=== PATIENT | female | born 1930 | race Caucasian/White ===

== ENCOUNTER 2017-03-19 18:04 | Inpatient (IN) | payer MEDICARE ==
[~2017-03-19] VITALS: Ht 152.4 cm; Wt 152.4 kg
[~2017-03-19 18:04] MED LIST: ASPI325T PO; BUME1TAB PO; CILO100T PO; DILTCD180 PO; DUONI NEB; LEVO.1 PO; NEBUKIT4; NEBUMIS6 INH; PARI1 PO; ROSU40 PO; SPIRCAP INH; TIOT18I INH; ULOR40TA PO; Z.0.OXYGENDME FM
[2017-03-19] MEDS ORDERED: SODIUM CHLORIDE 0.9% FLUSH 10 ML FLUSH IVF PRN (18:30)
[2017-03-19 18:45] VITALS: BP 147/67; PULSE 69; RESP 18; TEMP 97.9; O2SAT 96
[2017-03-19] MEDS ORDERED: TYLE325T PO (19:03)
[2017-03-19] MEDS ORDERED: DILT-48 PO (19:07)
[2017-03-19] MEDS ORDERED: LEVO112T2 PO (19:07)
[2017-03-19] MEDS ORDERED: ULOR80TA2 (19:07)
[2017-03-19] MEDS ORDERED: ASPI325T33 PO (19:07)
[2017-03-19] MEDS ORDERED: MAGN500T2 PO (19:07)
[2017-03-19] MEDS ORDERED: HYDR-3799 PO (19:07)
[2017-03-19] MEDS ORDERED: PARI1 PO (19:07)
[2017-03-19] MEDS ORDERED: FERR325T18 PO (19:07)
--- NOTE | 2017-03-19 19:18 | PD ---
HPI Chief Complaint: Abnormal Results Time Seen by Provider: 18:20 Travel History International Travel<30 days: No Contact w/Intl Traveler<30days: No Traveled to known affect area: No History of Present Illness HPI 86-year-old female with history of CHF, A. fib, and kidney disease presents to the emergency room for evaluation of low hemoglobin. Patient had routine outpatient labs done today that showed a hemoglobin of 6.8. She denies any hematemesis, melena, vaginal bleeding, hematuria, or hematochezia. Patient has had lower abdominal pain for the past few days. She also reports dysuria. She is currently in [facility] after having been admitted to [facility] for 2 weeks. Son states she was admitted for dehydration after having the flu and an exacerbation of acute on chronic kidney disease. She follows with the traffic manager, Dr. Choudhary. Son states her renal function is around 18% at baseline. There are discussions of possibly starting dialysis. He states she has had no history of anemia. She takes 325 mg aspirin daily. PCP is Dr. Linares. Patient has a DNR. [facility] Past Medical History Arthritis: Yes Atrial Fibrillation: Yes Blood Disorders: No Heart Rhythm Problems: Yes Cancer: No Cardiovascular Problems: Yes ( ) High Cholesterol: Yes Chemotherapy: No Chest Pain: Yes Congestive Heart Failure: No COPD: Yes Diabetes: No Diminished Hearing: No Endocrine: Yes Genitourinary: Yes (left kidney function 30% per pt) Hypertension: Yes Immune Disorder: No Implanted Vascular Access Dvce: Yes Musculoskeletal: Yes (right knee replacement ) Neurologic: Yes (surgical clip aneurysm) Psychiatric: No Reproductive: No Respiratory: No Thyroid Disease: Yes (partial thyroidectomy ) Past Surgical History Body Medical Devices: brain aneurysm clip Eye Surgery: Yes (BILATERAL CATARACT SX) Gynecologic Surgery: Yes (HYSTERECTOMY 1971) Hysterectomy: Yes Other Surgery: Yes (THYROID-PARTIAL 1996) Social History Alcohol Use: No Tobacco Use: No Substance Use: No Allergies-Medications (Allergen,Severity, Reaction): Coded Allergies: No Known Allergies (Unverified , 11/22/14) Reported Meds & Prescriptions Reported Meds & Active Scripts Active Reported Levothyroxine (Levothyroxine Sodium) 112 Mcg Tab 112 Mcg PO DAILY Diltiazem ER 24 HR 240 Mg Caper 240 Mg PO DAILY Aspirin EC (Aspirin) 325 Mg Tabdr 325 Mg PO DAILY Hydralazine HCl 25 Mg Tablet 50 Mg PO HS Zemplar (Paricalcitol) 1 Mcg Cap 1 Mcg PO DAILY Uloric (Febuxostat) 80 Mg Tab Ferrous Sulfate 325 Mg (65 Mg Iron) Tablet 325 Mg PO TIDPC Magnesium Oxide 500 Mg Tab 500 Mg PO DAILY Tylenol (Acetaminophen) 325 Mg Tab 650 Mg PO Q6H PRN Review of Systems Except as stated in HPI: all other systems reviewed are Neg Physical Exam Narrative GENERAL: Well-nourished, morbidly obese female in no acute distress. Afebrile. Ambulatory. SKIN: Focused skin assessment warm/dry. Healing stage I decubitus ulcer. HEAD: Normocephalic. EYES: No scleral icterus. No injection or drainage. NECK: Supple, trachea midline. No JVD or lymphadenopathy. CARDIOVASCULAR: Regular rate and rhythm without murmurs, gallops, or rubs. RESPIRATORY: Breath sounds equal bilaterally. No accessory muscle use. GASTROINTESTINAL: Abdomen soft, nondistended. Diffuse tenderness to palpation of the lower abdomen. No rebound tenderness or guarding. RECTAL EXAM: Examined in presence of the nurse. No tenderness, stool is brown. There is bright red blood. Data Data Last Documented VS Vital Signs Date Time Temp Pulse Resp B/P (MAP) Pulse Ox O2 Delivery O2 Flow Rate FiO2 03/19/17 18:45 97.9 69 18 147/67 (93) 96 Orders Orders Complete Blood Count With Diff (03/19/17 18:23) Comprehensive Metabolic Panel (03/19/17 18:23) Lipase (03/19/17 18:23) Prothrombin Time / Inr (Pt) (03/19/17 18:23) Act Partial Throm Time (Ptt) (03/19/17 18:23) Type And Screen (03/19/17 18:23) Ecg Monitoring (03/19/17 18:23) Iv Access Insert/Monitor (03/19/17 18:23) Oximetry (03/19/17 18:23) Sodium Chloride 0.9% Flush (Ns Flush) (03/19/17 18:30) Urinalysis - C+S If Indicated (03/19/17 18:55) Ct Abd/Pel W/O Iv Contrast (03/19/17 19:42) Sodium Chlor 0.9% 250 Ml Inj (Ns 250 Ml (03/19/17 21:15) Admit To Inpatient (03/19/17 ) Vital Signs (Adult) Q4H (03/19/17 21:59) Activity Oob With Assistance (03/19/17 21:59) Diet Npo (03/20/17 Breakfast) Sodium Chloride 0.9% Flush (Ns Flush) (03/19/17 22:00) Sodium Chloride 0.9% Flush (Ns Flush) (03/20/17 09:00) Basic Metabolic Panel (Bmp) (03/20/17 06:00) Complete Blood Count With Diff (03/20/17 06:00) Pt Request For Service (03/19/17 21:59) Case Management Consult (03/19/17 21:59) Naloxone Inj (Narcan Inj) (03/19/17 22:00) Inpatient Certification (03/19/17 ) Typesetting Supervisor / Telemetry [id number] (03/19/17 21:59) Red Blood Cells (Rbc) (03/19/17 22:01) Blood Product Administration (03/19/17 22:01) Admit Order (Ed Use Only) (03/19/17 22:00) Consult Gastroenterology (03/19/17 ) Labs Laboratory Tests Test 03/19/17 18:30 03/19/17 19:47 White Blood Count 15.3 TH/MM3 Red Blood Count 2.38 MIL/MM3 Hemoglobin 7.3 GM/DL Hematocrit 22.7 % Mean Corpuscular Volume 95.5 FL Mean Corpuscular Hemoglobin 30.6 PG Mean Corpuscular Hemoglobin Concent 32.1 % Red Cell Distribution Width 16.2 % Platelet Count 316 TH/MM3 Mean Platelet Volume 9.4 FL Neutrophils (%) (Auto) 87.2 % Lymphocytes (%) (Auto) 4.5 % Monocytes (%) (Auto) 6.1 % Eosinophils (%) (Auto) 1.7 % Basophils (%) (Auto) 0.5 % Neutrophils # (Auto) 13.3 TH/MM3 Lymphocytes # (Auto) 0.7 TH/MM3 Monocytes # (Auto) 0.9 TH/MM3 Eosinophils # (Auto) 0.3 TH/MM3 Basophils # (Auto) 0.1 TH/MM3 CBC Comment AUTO DIFF Differential Total Cells Counted 100 Neutrophils % (Manual) 83 % Lymphocytes % 5 % Monocytes % 9 % Eosinophils % 1 % Basophils % 1 % Neutrophils # (Manual) 12.9 TH/MM3 Metamyelocytes 1 % Differential Comment FINAL DIFF MANUAL Platelet Estimate NORMAL Platelet Morphology Comment NORMAL Ovalocytes 1+ Blood Urea Nitrogen 74 MG/DL Creatinine 4.29 MG/DL Random Glucose 106 MG/DL Total Protein 6.4 GM/DL Albumin 2.1 GM/DL Calcium Level 8.9 MG/DL Alkaline Phosphatase 101 U/L Aspartate Amino Transf (AST/SGOT) 14 U/L Alanine Aminotransferase (ALT/SGPT) 23 U/L Total Bilirubin 0.3 MG/DL Sodium Level 143 MEQ/L Potassium Level 4.3 MEQ/L Chloride Level 113 MEQ/L Carbon Dioxide Level 18.2 MEQ/L Anion Gap 12 MEQ/L Estimat Glomerular Filtration Rate 10 ML/MIN Lipase 195 U/L Prothrombin Time 10.1 SEC Prothromb Time International Ratio 1.0 RATIO Activated Partial Thromboplast Time 26.1 SEC MDM Medical Decision Making Medical Screen Exam Complete: Yes Emergency Medical Condition: Yes Medical Record Reviewed: Yes Differential Diagnosis Hematuria, diverticulosis, internal bleeding, anemia Narrative Course 86-year-old female with history of chronic kidney disease, CHF, and A. fib on 325 mg aspirin daily presents to the emergency room for evaluation of a hemoglobin of 6.8. Patient came from [facility]. She is well- appearing with stable vital signs in the ER. She has diffuse tenderness to the lower abdomen. Digital exam of the rectum reveals bright red blood. Hemoccult- positive. Patient was typed and screened upon arrival. Repeat H&H in the ED is 7.3 and 22.7. She has mild leukocytosis of 15.3. CMP is only remarkable for chronic kidney disease with creatinine of 4.29. CT of the abdomen reveals colonic diverticulosis. UA ordered and pending. Patient will be admitted for critically low hemoglobin with active GI bleeding. I spoke to Dr. Abrams who agrees to accept this patient to her service. Patient understands and agrees to plan. [facility]pt Point of Care Internal Pos. & Neg. Controls: Passed Fecal Specimen Occult Blood: Positive Diagnosis Primary Impression: Anemia Qualified Codes: D50.0 - Iron deficiency anemia secondary to blood loss ( chronic) Additional Impression: GI bleed Qualified Codes: K92.2 - Gastrointestinal hemorrhage, unspecified Admitting Information Admitting Physician Requests: Admit Condition: Stable Yanet Frazier Mar 19, 2017 19:18
[2017-03-19 19:22] LABS: AUTOMATED NEUTROPHIL # 13.3 TH/MM3 (1.8-7.7); BASOPHIL # 0.1 TH/MM3 (0-0.2); BASOPHIL % 0.5 % (0.0-2.0); EOSINOPHIL # 0.3 TH/MM3 (0-0.4); EOSINOPHIL % 1.7 % (0.0-4.0); HEMATOCRIT 22.7 % (35.0-46.0); HEMOGLOBIN 7.3 GM/DL (11.6-15.3); LYMPH % 4.5 % (9.0-44.0); LYMPHOCYTE # 0.7 TH/MM3 (1.0-4.8); MEAN CELL VOLUME 95.5 FL (80.0-100.0); MEAN CORPUSCULAR HEMOGLOBIN 30.6 PG (27.0-34.0); MEAN CORPUSCULAR HGB CONC 32.1 % (32.0-36.0); MEAN PLATELET VOLUME 9.4 FL (7.0-11.0); MONO % 6.1 % (0.0-8.0); MONOCYTE # 0.9 TH/MM3 (0-0.9); NEUT % 87.2 % (16.0-70.0); PLATELET COUNT 316 TH/MM3 (150-450); RED BLOOD COUNT 2.38 MIL/MM3 (4.00-5.30); RED CELL DISTRIBUTION WIDTH 16.2 % (11.6-17.2); WHITE BLOOD COUNT 15.3 TH/MM3 (4.0-11.0)
[2017-03-19 19:25] LABS: ALBUMIN 2.1 GM/DL (3.4-5.0); AST (GOT) 14 U/L (15-37); BICARBONATE 18.2 MEQ/L (21.0-32.0); BLOOD UREA NITROGEN 74 MG/DL (7-18); CALCIUM 8.9 MG/DL (8.5-10.1); CHLORIDE 113 MEQ/L (98-107); CREATININE 4.29 MG/DL (0.50-1.00); GLOMERULAR FILTRATION RATE 10 ML/MIN (>89); GLUCOSE,RANDOM 106 MG/DL (74-106); LIPASE 195 U/L (73-393); SODIUM (NA) 143 MEQ/L (136-145)
[2017-03-19 19:28] LABS: ALKALINE PHOSPHATASE 101 U/L (45-117); ALT (GPT) 23 U/L (10-53); TOTAL BILIRUBIN ADULT 0.3 MG/DL (0.2-1.0); TOTAL PROTEIN 6.4 GM/DL (6.4-8.2)
[2017-03-19 19:44] LABS: BASOPHILS 1 % (0-2); LYMPHOCYTES 5 % (9-44); METAMYELOCYTES 1 % (0-1); MONOCYTES 9 % (0-8); NEUTROPHIL # MANUAL DIFF 12.9 TH/MM3 (1.8-7.7); POLYS (SEG NEUTROPHILS) 83 % (16-70)
[2017-03-19 19:45] LABS: OVALOCYTES 1+ (NORMAL)
[2017-03-19 20:36] LABS: PROTHROMBIN TIME - PATIENT 10.1 SEC (9.8-11.6)
--- NOTE | 2017-03-19 20:50 | RADRPT ---
EXAM DATE/TIME: 03/19/2017 20:12 [place] COMPARISON: No previous studies available for comparison. INDICATIONS : Lower abdomen pain ORAL CONTRAST: No oral contrast ingested. RADIATION DOSE: 15.06 CTDIvol (mGy) MEDICAL HISTORY : Cardiovascular disease. Hypertension. Chronic obstructive pulmonary disease.Renal disease SURGICAL HISTORY : Hysterectomy. ENCOUNTER: Initial ACUITY: 2 days PAIN SCALE: 6/10 LOCATION: Abdomen TECHNIQUE: Volumetric scanning of the abdomen and pelvis was performed. Using automated exposure control and ad justment of the mA and/or kV according to patient size, radiation dose was kept as low as reasonably achievable to obtain optimal diagnostic quality images. DICOM format image data is available electro nically for review and comparison. FINDINGS: LOWER LUNGS: Moderate cardiomegaly with tiny pericardial effusion. Tiny bilateral pleural effusions and associated passive atelectasis. LIVER: Homogeneous density without lesion. There is no dilation of the biliary tree. No calcified gallston es. SPLEEN: Normal size without lesion. PANCREAS: Within normal limits. KIDNEYS: Both kidneys are atrophic. Both contain low density cortical lesions consistent with cysts. No perine phric fluid collections or stones. No hydronephrosis. ADRENAL GLANDS: Within normal limits. VASCULAR: Diffuse calcified plaque without aneurysmal change. BOWEL/MESENTERY: The stomach, small bowel, and colon demonstrate no acute abnormality. There is no free intraperitone al air or fluid. Scattered colonic diverticuli without acute inflammation. ABDOMINAL WALL: There is mild stranding of the simultaneous fat involving the left flank. No fluid collections. RETROPERITONEUM: There is no lymphadenopathy. BLADDER: No wall thickening or mass. REPRODUCTIVE: Within normal limits. INGUINAL: There is no lymphadenopathy or hernia. MUSCULOSKELETAL: Within normal limits for patient age. CONCLUSION: 1. No acute abnormality. 2. Mild stranding of the subcutaneous fat involving the left flank. This could relate to focal edema or cellulitis. No fluid collection. 3. Colonic diverticulosis. 4. Cardiomegaly with tiny bilateral pleural effusions and bibasilar atelectasis. Tae Vyas Jr., MD on March 19, 2017 at 20:45 Board Certified Radiologist. This report was verified electronically.
[2017-03-19] MEDS ORDERED: SODIUM CHLOR 0.9% 250 ML INJ 250 ML IV ONE (21:15)
[2017-03-19] MEDS ORDERED: NALOXONE HCL 0.4 MG/ML AMP IV PUSH PRN (22:00)
[2017-03-19] MEDS ORDERED: SODIUM CHLORIDE 0.9% FLUSH 10 ML FLUSH IV FLUSH PRN (22:00)
[2017-03-19 23:01] VITALS: BP 116/65; PULSE 89; RESP 14; O2SAT 97
[2017-03-19 23:37] VITALS: BP 114/51; PULSE 74; RESP 14; TEMP 97.8; O2SAT 95
[2017-03-19 23:52] VITALS: BP 134/62; PULSE 72; RESP 14; TEMP 97.8; O2SAT 96
[2017-03-20] VITALS (14 sets, daily range): BP systolic 95–130; BP diastolic 56–84; PULSE 75–104; RESP 14–20; TEMP 96.3–98.1; O2SAT 93–97
[2017-03-20 02:04] LABS: AMORPHOUS SEDIMENT, URINE RARE; BACTERIA, URINE OCC /hpf; BILIRUBIN, URINE NEG (NEG); BLOOD, URINE NEG (NEG); GLUCOSE,URINE NEG (NEG); KETONE, URINE NEG (NEG); NITRITE,URINE NEG (NEG); PH, URINE 5.5 (5.0-8.5); SQUAMOUS EPITHELIAL CELL URINE 8 /hpf (0-5); URINE COLOR LIGHT-YELLOW (YELLW/STRAW); URINE LEUKOCYTE ESTERASE MOD (NEG)
--- NOTE | 2017-03-20 04:00 | HHI.HP ---
HPI [facility] Primary Care Physician Unknown Admission Diagnosis anemia, GI bleed Diagnoses: Travel History International Travel<30 Days: No Contact w/Intl Traveler <30 Da: No Traveled to Known Affected Are: No History of Present Illness History from patient, ER physician communication, and review of medical records. Patient is quite sleepy during my examination. Both nursing staff and the notes from [facility] also stated that patient at times is oriented only to herself and not a great historian. On specific questioning though, patient reports of abdominal pain. She denies nausea/vomiting/diarrhea. She denies seeing any blood in her stool. She does note that she was admitted recently to hospital. Per [facility] transfer notes, patient was sent to ER for abnormal blood work showing low hemoglobin of 6.8. In the emergency room, guaiac was done by ER PA which showed bright red blood. Review of Systems ROS Limitations: Altered Mental Status (limited historian. Unable to obtain review of systems apart from the fact that she has pain in her abdomen.) Past Family Social History Past Medical History per emr Atrial fibrillation Arthritis CKD Hypertension Brain aneurysm Hypothyroidism COPD Past Surgical History per emr Brain aneurysm, status post clipping and craniotomy Bilateral cataract surgery Hysterectomy in 1971 Partial thyroidectomy 1996 Right total knee arthroplasty approximately 6 years ago Allergies: Coded Allergies: No Known Allergies (Unverified , 11/22/14) Family History Unknown. Physical Exam Vital Signs Vital Signs Date Time Temp Pulse Resp B/P (MAP) Pulse Ox O2 Delivery O2 Flow Rate FiO2 03/20/17 01:00 97.4 75 16 120/56 96 03/20/17 00:30 97.9 90 14 130/64 96 03/20/17 00:15 97.9 82 14 123/59 96 03/19/17 23:52 97.8 72 14 134/62 96 03/19/17 23:37 97.8 74 14 114/51 95 03/19/17 23:01 89 14 116/65 (82) 97 03/19/17 18:45 97.9 69 18 147/67 (93) 96 Physical Exam GENERAL: This is a well-nourished, well-developed patient, in no apparent distress. Obese lady. Snoring loudly. SKIN: Multiple superficial ecchymoses HEAD: Atraumatic. Normocephalic. No temporal or scalp tenderness. EYES: No scleral icterus. No injection or drainage. ENT: Nose without bleeding, purulent drainage or septal hematoma. Airway patent. NECK: Trachea midline. No JVD Supple, nontender, no meningeal signs. CARDIOVASCULAR: Regular rate and rhythm without murmurs, gallops, or rubs. RESPIRATORY: Clear to auscultation. Breath sounds equal bilaterally. No wheezes , rales, or rhonchi. GASTROINTESTINAL: Abdomen soft, non-tender, nondistended. No guarding. MUSCULOSKELETAL: Extremities without clubbing, cyanosis, or edema. bilateral LE mild edema, obese, thick legs NEUROLOGICAL: . Motor and sensory grossly within normal limits. Normal speech.sleeping mostly Laboratory Laboratory Tests Test 03/19/17 18:30 03/19/17 19:47 03/20/17 01:40 White Blood Count 15.3 Red Blood Count 2.38 Hemoglobin 7.3 Hematocrit 22.7 Mean Corpuscular Volume 95.5 Mean Corpuscular Hemoglobin 30.6 Mean Corpuscular Hemoglobin Concent 32.1 Red Cell Distribution Width 16.2 Platelet Count 316 Mean Platelet Volume 9.4 Neutrophils (%) (Auto) 87.2 Lymphocytes (%) (Auto) 4.5 Monocytes (%) (Auto) 6.1 Eosinophils (%) (Auto) 1.7 Basophils (%) (Auto) 0.5 Neutrophils # (Auto) 13.3 Lymphocytes # (Auto) 0.7 Monocytes # (Auto) 0.9 Eosinophils # (Auto) 0.3 Basophils # (Auto) 0.1 CBC Comment AUTO DIFF Differential Total Cells Counted 100 Neutrophils % (Manual) 83 Lymphocytes % 5 Monocytes % 9 Eosinophils % 1 Basophils % 1 Neutrophils # (Manual) 12.9 Metamyelocytes 1 Differential Comment FINAL DIFF MANUAL Platelet Estimate NORMAL Platelet Morphology Comment NORMAL Ovalocytes 1+ Blood Urea Nitrogen 74 Creatinine 4.29 Random Glucose 106 Total Protein 6.4 Albumin 2.1 Calcium Level 8.9 Alkaline Phosphatase 101 Aspartate Amino Transf (AST/SGOT) 14 Alanine Aminotransferase (ALT/SGPT) 23 Total Bilirubin 0.3 Sodium Level 143 Potassium Level 4.3 Chloride Level 113 Carbon Dioxide Level 18.2 Anion Gap 12 Estimat Glomerular Filtration Rate 10 Lipase 195 Prothrombin Time 10.1 Prothromb Time International Ratio 1.0 Activated Partial Thromboplast Time 26.1 Urine Color LIGHT-YELLOW Urine Turbidity HAZY Urine pH 5.5 Urine Specific [place] 1.010 Urine Protein 30 Urine Glucose (UA) NEG Urine Ketones NEG Urine Occult Blood NEG Urine Nitrite NEG Urine Bilirubin NEG Urine Urobilinogen LESS THAN 2.0 Urine Leukocyte Esterase MOD Urine RBC 2 Urine WBC 13 Urine Squamous Epithelial Cells 8 Urine Amorphous Sediment RARE Urine Bacteria OCC Microscopic Urinalysis Comment CULTURE INDICATED Date/Time Source Procedure Growth Status 03/20/17 01:40 Urine Clean Catch Urine Culture Pending Received Result Diagram: 03/19/17 1830 03/19/17 183 Imaging Last 48 hours Impressions Abdomen/Pelvis CT 03/19/171941 Signed Impressions: Service Date/Time: March 20:12 - CONCLUSION: 1. No acute abnormality. 2. Mild stranding of the subcutaneous fat involving the left flank. This could relate to focal edema or cellulitis. No fluid collection. 3. Colonic diverticulosis. 4. Cardiomegaly with tiny bilateral pleural effusions and bibasilar atelectasis. Tae Vyas Jr., MD Caprini VTE Risk Assessment Caprini VTE Risk Assessment: Mod/High Risk (score >= 2) Caprini Risk Assessment Model Point Value = 1 Point Value = 2 Point Value = 3 Point Value = 5 Age 41-60 Minor surgery BMI > 25 kg/m2 Swollen legs Varicose veins or History of unexplained or recurrent spontaneous Oral contraceptives or hormone replacement Sepsis (< 1 month) Serious lung disease, including pneumonia (< 1 month) Abnormal pulmonary function Acute myocardial infarction Congestive heart failure (< 1 month) History of inflammatory bowel disease Medical patient at bed rest Age 61-74 Arthroscopic surgery Major open surgery (> 45 min) Laparoscopic surgery (> 45 min) Malignancy Confined to bed (> 72 hours) Immobilizing plaster cast Central venous access Age >= 75 History of VTE Family history of VTE Factor V Leiden Prothrombin [id number] Lupus anticoagulant Anticardiolipin antibodies Elevated serum homocysteine Heparin-induced thrombocytopenia Other congenital or acquired thrombophilia Stroke (< 1 month) Elective arthroplasty Hip, pelvis, or leg fracture Acute spinal cord injury (< 1 month) Prophylaxis Regimen Total Risk Factor Score Risk Level Prophylaxis Regimen 0-1 Low Early ambulation 2 Moderate Order ONE of the following: *Sequential Compression Device (SCD) *Heparin 5000 units SQ BID 3-4 Higher Order ONE of the following medications: *Heparin 5000 units SQ TID *Enoxaparin/Lovenox 40 mg SQ daily (WT < 150 kg, CrCl > 30 mL/min) *Enoxaparin/Lovenox 30 mg SQ daily (WT < 150 kg, CrCl > 10-29 mL/min) *Enoxaparin/Lovenox 30 mg SQ BID (WT < 150 kg, CrCl > 30 mL/min) AND/OR *Sequential Compression Device (SCD) 5 or more Highest Order ONE of the following medications: *Heparin 5000 units SQ TID (Preferred with Epidurals) *Enoxaparin/Lovenox 40 mg SQ daily (WT < 150 kg, CrCl > 30 mL/min) *Enoxaparin/Lovenox 30 mg SQ daily (WT < 150 kg, CrCl > 10-29 mL/min) *Enoxaparin/Lovenox 30 mg SQ BID (WT < 150 kg, CrCl > 30 mL/min) AND *Sequential Compression Device (SCD) Assessment and Plan Assessment and Plan Impression: Lower GI bleed likely diverticular bleed Leukocytosis with left shift UTI Acute renal failure secondary to dehydration from blood loss Atrial fibrillation Arthritis CKD, unknown stage Hypertension Brain aneurysm Hypothyroidism COPD Plan: Transfuse 2 units of PRBC. Each unit over 4 hours. Lasix 20 mg IV after each unit of PRBC. Watch for fluid overload. Will follow renal function. Start patient on Rocephin 1 g IV every 24 hours. Hold blood thinners. GI consult. CT abdomen and pelvis personally reviewed. There is evidence of diverticula without diverticulitis. Resume rest of home medications. DVT prophylaxis with SCD. GI prophylaxis on pantoprazole. Code Status DNR pt has state of [place] papers in chart Discussed Condition With ER physician , nursing staff Physician Certification 2 Midnight Certification Type: Admission for Inpatient Services Order for Inpatient Services The services are ordered in accordance with Medicare regulations or non- Medicare payer requirements, as applicable. In the case of services not specified as inpatient-only, they are appropriately provided as inpatient services in accordance with the 2-midnight benchmark. Estimated LOS (days): 3 days is the estimated time the patient will need to remain in the hospital, assuming treatment plan goals are met and no additional complications. Post-Hospital Plan: [facility] Trang Abrams MD Mar 20, 2017 04:00
[2017-03-20] MEDS ORDERED: FUROSEMIDE 20 MG/2 ML VIAL IV PUSH PRN (04:15)
[2017-03-20] MEDS: LEVOTHYROXINE SODIUM 112 MCG TAB PO SCH (07:31)
--- NOTE | 2017-03-20 08:51 | PD.CONS ---
HPI History of Present Illness This is a 86 year old obese female who presented to the emergency room on with symptoms of nausea. Patient denies vomiting diarrhea or constipation . Patient states that onset of symptoms has been for approximately a week and a half; she did note some left and right lower abdominal cramping with the urge to defecate. She notes stools to be dark tarry substance, but patient is also on iron supplements. She denies any previous EGD or colonoscopy or GI workup. Patient has a history of atrial fib controlled ventricular response this a.m. heart rate 76. Patient takes aspirin 325 mg, but this is been on hold since admission to the hospital. Patient's hemoglobin is 7.3 on 03/19/17 and patient has received 2 units of packed RBCs. Patient is awake, answering simple questions appropriately. According to the initial hospital note patient had guaiac done which showed bright red blood. (Naima Mcnair) PFSH Past Medical History According to the record Atrial fibrillation Arthritis CKD Hypertension Brain aneurysm Hypothyroidism COPD Anemia?, Patient was on iron supplement Past Surgical History Per the record, Brain aneurysm, status post clipping and craniotomy Bilateral cataract surgery Hysterectomy in 1971 Partial thyroidectomy 1996 Right total knee arthroplasty approximately 6 years ago (Naima Mcnair) Coded Allergies: No Known Allergies (Unverified , 11/22/14) Medications Administered Medications Medications (Trade) Dose Ordered Sig/Mir Route PRN Reason Start Time Stop Time Status Last Admin Dose Admin Sodium Chloride (NS Flush) 2 ml BID IV FLUSH 03/20/17 09:00 03/20/17 09:21 Diltiazem HCl (Cardizem Cd) 240 mg DAILY PO 03/20/17 09:00 03/20/17 09:21 Ferrous Sulfate (Ferrous Sulfate) 325 mg TIDPC PO 03/20/17 09:30 03/20/17 09:23 Levothyroxine Sodium (Synthroid) 112 mcg DAILY@0700 PO 03/20/17 07:00 03/20/17 07:31 Paricalcitol (Zemplar) 1 mcg DAILY PO 03/20/17 09:00 03/20/17 09:21 Magnesium Oxide (Mag-Ox) 400 mg DAILY PO 03/20/17 09:00 03/20/17 09:21 Furosemide (Lasix Inj) 20 mg UNSCH X1 PRN IV PUSH GIVE AFTER EACH UNITS PRBC 03/20/17 04:15 03/20/17 20:00 03/20/17 04:34 Ceftriaxone Sodium 1000 mg/ Sodium Chloride 100 ml @ 200 mls/hr Q24H IV 03/20/17 08:00 03/20/17 09:21 Pantoprazole Sodium (Protonix Inj) 40 mg Q12H IV PUSH 03/20/17 08:00 03/20/17 09:20 Family History Unknown. Social History No known tobacco alcohol or illicit drugs (Naima Mcnair) Review of Systems Constitutional: COMPLAINS OF: Fatigue Gastrointestinal: COMPLAINS OF: Abdominal pain, Black stools, Nausea, Vomiting (Naima Mcnair) GI Exam Vitals I&O Vital Signs Date Time Temp Pulse Resp B/P (MAP) Pulse Ox O2 Delivery O2 Flow Rate FiO2 03/20/17 07:29 97.7 76 20 97/66 (76) 97 03/20/17 05:53 97.8 76 16 108/84 97 03/20/17 05:31 97.4 84 16 108/83 94 03/20/17 03:30 97.6 77 15 107/82 97 03/20/17 01:45 75 03/20/17 01:00 97.4 75 16 120/56 96 03/20/17 00:30 97.9 90 14 130/64 96 03/20/17 00:15 97.9 82 14 123/59 96 03/19/17 23:52 97.8 72 14 134/62 96 03/19/17 23:37 97.8 74 14 114/51 95 03/19/17 23:01 89 14 116/65 (82) 97 03/19/17 18:45 97.9 69 18 147/67 (93) 96 I/O 03/19/17 03/19/17 03/19/17 03/20/17 03/20/17 03/20/17 07:00 15:00 23:00 07:00 15:00 23:00 Intake Total 430 ml Balance 430 ml Intake Packed Cells 400 ml Blood Product IV Normal Saline Flush 30 ml # Voids 1 Imaging Last Impressions Abdomen/Pelvis CT 03/19/171941 Signed Impressions: Service Date/Time: March 20:12 - CONCLUSION: 1. No acute abnormality. 2. Mild stranding of the subcutaneous fat involving the left flank. This could relate to focal edema or cellulitis. No fluid collection. 3. Colonic diverticulosis. 4. Cardiomegaly with tiny bilateral pleural effusions and bibasilar atelectasis. Tae Vyas Jr., MD Laboratory Test 03/19/17 18:30 03/19/17 19:47 03/20/17 01:40 White Blood Count 15.3 TH/MM3 Red Blood Count 2.38 MIL/MM3 Hemoglobin 7.3 GM/DL Hematocrit 22.7 % Mean Corpuscular Volume 95.5 FL Mean Corpuscular Hemoglobin 30.6 PG Mean Corpuscular Hemoglobin Concent 32.1 % Red Cell Distribution Width 16.2 % Platelet Count 316 TH/MM3 Mean Platelet Volume 9.4 FL Neutrophils (%) (Auto) 87.2 % Lymphocytes (%) (Auto) 4.5 % Monocytes (%) (Auto) 6.1 % Eosinophils (%) (Auto) 1.7 % Basophils (%) (Auto) 0.5 % Neutrophils # (Auto) 13.3 TH/MM3 Lymphocytes # (Auto) 0.7 TH/MM3 Monocytes # (Auto) 0.9 TH/MM3 Eosinophils # (Auto) 0.3 TH/MM3 Basophils # (Auto) 0.1 TH/MM3 CBC Comment AUTO DIFF Differential Total Cells Counted 100 Neutrophils % (Manual) 83 % Lymphocytes % 5 % Monocytes % 9 % Eosinophils % 1 % Basophils % 1 % Neutrophils # (Manual) 12.9 TH/MM3 Metamyelocytes 1 % Differential Comment FINAL DIFF MANUAL Platelet Estimate NORMAL Platelet Morphology Comment NORMAL Ovalocytes 1+ Blood Urea Nitrogen 74 MG/DL Creatinine 4.29 MG/DL Random Glucose 106 MG/DL Total Protein 6.4 GM/DL Albumin 2.1 GM/DL Calcium Level 8.9 MG/DL Alkaline Phosphatase 101 U/L Aspartate Amino Transf (AST/SGOT) 14 U/L Alanine Aminotransferase (ALT/SGPT) 23 U/L Total Bilirubin 0.3 MG/DL Sodium Level 143 MEQ/L Potassium Level 4.3 MEQ/L Chloride Level 113 MEQ/L Carbon Dioxide Level 18.2 MEQ/L Anion Gap 12 MEQ/L Estimat Glomerular Filtration Rate 10 ML/MIN Lipase 195 U/L Prothrombin Time 10.1 SEC Prothromb Time International Ratio 1.0 RATIO Activated Partial Thromboplast Time 26.1 SEC Urine Color LIGHT-YELLOW Urine Turbidity HAZY Urine pH 5.5 Urine Specific [place] 1.010 Urine Protein 30 mg/dL Urine Glucose (UA) NEG mg/dL Urine Ketones NEG mg/dL Urine Occult Blood NEG Urine Nitrite NEG Urine Bilirubin NEG Urine Urobilinogen LESS THAN 2.0 MG/DL Urine Leukocyte Esterase MOD Urine RBC 2 /hpf Urine WBC 13 /hpf Urine Squamous Epithelial Cells 8 /hpf Urine Amorphous Sediment RARE Urine Bacteria OCC /hpf Microscopic Urinalysis Comment CULTURE INDICATED Date/Time Source Procedure Growth Status 03/20/17 01:40 Urine Clean Catch Urine Culture Pending Received Physical Examination HEENT: Pupils round and reactive to light; normocephalic; atraumatic; no jaundice. Throat is clear. NECK: Neck is supple, no JVD, no lymphadenopathy. CHEST: Chest is clear to auscultation and percussion. CARDIAC: Regular rate and rhythm with no murmur gallop or rubs. ABDOMEN: Soft, nondistended, nontender; no hepatosplenomegaly; bowel sounds are present in all four quadrants. EXTREMITIES: No clubbing, cyanosis, or edema. SKIN: Normal; no rash; no jaundice. ECOTHERAPIST: No focal deficits; alert and oriented times three. (Naima Mcnair) Assessment and Plan Assessment: (1) Anemia ICD Codes: D64.9 - Anemia, unspecified Status: Acute (2) GI bleed ICD Codes: K92.2 - Gastrointestinal hemorrhage, unspecified Status: Acute Plan Abdominal pain left and right lower quadrants, CT scan shows diverticulosis Patient states dark tarry stools for a week and a half long with symptoms of nausea, no vomiting. Plan Consent for EGD this a.m. spoke with GI lab Patient's currently nothing by mouth and will remain nothing by mouth at least until after procedure Hold any blood thinners, aspirin has been on hold since admission Monitor labs recheck CBC in a.m., and current globe and hematocrit is pending Call GI for any acute bright red bleeding Further procedures or recommendations will be based on symptom needs and plan a care Patient was seen by myself and Dr. Damian, note done on his behalf (Naima Mcnair) Physician Comments Patient seen and examined Agree with above Continue with current supportive care Monitor labs and transfuse if needed We will proceed with an upper endoscopy (Ranulfo Damian MD) Problem Qualifiers (1) Anemia: Qualified Codes: D50.0 - Iron deficiency anemia secondary to blood loss ( chronic) (2) GI bleed: Qualified Codes: K92.2 - Gastrointestinal hemorrhage, unspecified Naima Mcnair Mar 20, 2017 08:51 Ranulfo Damian MD Mar 20, 2017 13:23
[2017-03-20] MEDS: PANTOPRAZOLE SODIUM 40 MG VIAL IV PUSH SCH ×2 (09:20→21:02)
[2017-03-20] MEDS: DILTIAZEM-CD 240 MG CAP ER PO SCH (09:21)
[2017-03-20] MEDS: PARICALCITOL 1 MCG CAP PO SCH (09:21)
[2017-03-20] MEDS: MAGNESIUM OXIDE 400 MG TAB PO SCH (09:21)
[2017-03-20] MEDS: cefTRIAXone INJ 1,000 MG in SODIUM CHLORIDE 0.9% INJ 100 ML IV SCH (09:21)
[2017-03-20] MEDS: SODIUM CHLORIDE 0.9% FLUSH 10 ML FLUSH IV FLUSH SCH ×2 (09:21→21:02)
[2017-03-20] MEDS: FERROUS SULFATE 325 MG (65 MG ELEMENTAL IRON) TAB PO SCH ×3 (09:23→17:08)
[2017-03-20] MEDS ORDERED: PROPOFOL 200 MG/20 ML AMP IV ONE (12:00)
--- NOTE | 2017-03-20 13:27 | PD.PROCEDR ---
GI Procedure PROCEDURE PERFORMED EGD with cautery and biopsy INDICATION FOR PROCEDURE Anemia, GI bleed PROCEDURE: The procedure, risks and benefits were discussed with Ms. Batres and informed consent was obtained. Anesthesia sedated her with Diprivan. She was placed in the left lateral decubitus position. EGD: The Pentax videoscope was introduced through the oropharynx and advanced to the second portion of the duodenum under direct visualization. Retroflexion was performed in the stomach. FINDINGS: The esophagus this appeared to be unremarkable and within normal limits The stomach this too appeared to be unremarkable and within normal limits The duodenum there was a large duodenal sweep ulcer clean-based but there was one area of suspected visible vessel this was cauterized and no bleeding occurred the edges were slightly raised and edematous those were biopsied the rest of the duodenum was unremarkable ESTIMATED BLOOD LOSS: None SPECIMENS REMOVED: Duodenal biopsies COMPLICATIONS: None IMPRESSION: Large duodenal ulcer PLAN: Await biopsies Avoid NSAIDs and aspirin No anticoagulation for at least 1-2 weeks Recommend Protonix 40 mg twice a day Clear liquid diet for now EGD in 2 months Ranulfo Damian MD Mar 20, 2017 13:27
[2017-03-20] MEDS ORDERED: hydrALAZINE HCL 25 MG TAB PO SCH (21:00)
[2017-03-20 23:17] LABS: AUTOMATED NEUTROPHIL # 9.9 TH/MM3 (1.8-7.7); BASOPHIL # 0.1 TH/MM3 (0-0.2); BASOPHIL % 0.6 % (0.0-2.0); EOSINOPHIL # 0.3 TH/MM3 (0-0.4); EOSINOPHIL % 2.2 % (0.0-4.0); HEMATOCRIT 27.8 % (35.0-46.0); HEMOGLOBIN 9.3 GM/DL (11.6-15.3); LYMPH % 4.3 % (9.0-44.0); LYMPHOCYTE # 0.5 TH/MM3 (1.0-4.8); MEAN CELL VOLUME 92.9 FL (80.0-100.0); MEAN CORPUSCULAR HGB CONC 33.3 % (32.0-36.0); MONO % 8.2 % (0.0-8.0); NEUT % 84.7 % (16.0-70.0); PLATELET COUNT 240 TH/MM3 (150-450); RED CELL DISTRIBUTION WIDTH 16.1 % (11.6-17.2); WHITE BLOOD COUNT 11.6 TH/MM3 (4.0-11.0)
[2017-03-20 23:24] LABS: BICARBONATE 17.5 MEQ/L (21.0-32.0); CALCIUM 8.7 MG/DL (8.5-10.1); CREATININE 3.79 MG/DL (0.50-1.00)
[2017-03-21] VITALS (8 sets, daily range): BP systolic 98–121; BP diastolic 42–76; PULSE 59–108; RESP 16–20; TEMP 95.4–97.6; O2SAT 92–95
[2017-03-21] MEDS: LEVOTHYROXINE SODIUM 112 MCG TAB PO SCH (05:39)
[2017-03-21 07:21] LABS: HEMATOCRIT 27.7 % (35.0-46.0); HEMOGLOBIN 9.2 GM/DL (11.6-15.3); MEAN CELL VOLUME 92.9 FL (80.0-100.0); MEAN CORPUSCULAR HGB CONC 33.4 % (32.0-36.0); MEAN PLATELET VOLUME 8.5 FL (7.0-11.0); PLATELET COUNT 227 TH/MM3 (150-450); RED BLOOD COUNT 2.98 MIL/MM3 (4.00-5.30); WHITE BLOOD COUNT 9.5 TH/MM3 (4.0-11.0)
[2017-03-21] MEDS: cefTRIAXone INJ 1,000 MG in SODIUM CHLORIDE 0.9% INJ 100 ML IV SCH (08:00)
[2017-03-21] MEDS: PANTOPRAZOLE SODIUM 40 MG VIAL IV PUSH SCH (09:08)
[2017-03-21] MEDS: SODIUM CHLORIDE 0.9% FLUSH 10 ML FLUSH IV FLUSH SCH ×2 (09:08→20:55)
[2017-03-21] MEDS: DILTIAZEM-CD 240 MG CAP ER PO SCH (09:08)
[2017-03-21] MEDS: FERROUS SULFATE 325 MG (65 MG ELEMENTAL IRON) TAB PO SCH ×3 (09:08→16:03)
[2017-03-21] MEDS: MAGNESIUM OXIDE 400 MG TAB PO SCH (09:09)
[2017-03-21] MEDS: PARICALCITOL 1 MCG CAP PO SCH (09:09)
[2017-03-21] MEDS ORDERED: PANT40TA3 PO (12:31)
--- NOTE | 2017-03-21 15:51 | HHI.PR ---
Subjective Remarks Follow-up for GI bleed. Patient was sent to the hospital due to hemoglobin 6.8. Patient was given 2 units of PRBCs. She underwent EGD on 03/20/2017 and a suspected visible vessel was cauterized. Currently she is doing well. Somewhat sleepy. No fever or chills. No bleeding. Objective Vitals Vital Signs Date Time Temp Pulse Resp B/P (MAP) Pulse Ox O2 Delivery O2 Flow Rate FiO2 03/21/17 12:06 108 03/21/17 11:55 96.5 59 16 121/76 (91) 92 03/21/17 11:55 92 Room Air 03/21/17 09:05 Room Air 03/21/17 07:56 97.1 64 18 98/42 (60) 94 03/21/17 05:54 83 03/21/17 00:00 97.6 98 20 119/58 (78) 95 03/20/17 23:45 93 03/20/17 22:35 Room Air 03/20/17 20:20 89 03/20/17 20:19 82 03/20/17 20:00 97.1 80 18 127/62 (83) 93 I/O 03/20/17 03/20/17 03/20/17 03/21/17 03/21/17 03/21/17 07:00 15:00 23:00 07:00 15:00 23:00 Intake Total 430 ml 320 ml 120 ml 400 ml Balance 430 ml 320 ml 120 ml 400 ml Intake Oral 120 ml 120 ml Packed Cells 400 ml 400 ml Blood Product IV Normal Saline Flush 30 ml Other 200 ml # Voids 1 3 4 # Bowel Movements 1 Result Diagram: 03/21/17 0655 03/20/17 2215 Imaging Last Impressions Abdomen/Pelvis CT 03/19/171941 Signed Impressions: Service Date/Time: March 20:12 - CONCLUSION: 1. No acute abnormality. 2. Mild stranding of the subcutaneous fat involving the left flank. This could relate to focal edema or cellulitis. No fluid collection. 3. Colonic diverticulosis. 4. Cardiomegaly with tiny bilateral pleural effusions and bibasilar atelectasis. Tae Vyas Jr., MD Objective Remarks GENERAL: Alert, NAD. SKIN: Warm and dry. HEAD: Normocephalic. EYES: No scleral icterus. No injection or drainage. NECK: Supple, trachea midline. No JVD or lymphadenopathy. CARDIOVASCULAR: Regular rate and rhythm without murmurs, gallops, or rubs. RESPIRATORY: Breath sounds equal bilaterally. No accessory muscle use. GASTROINTESTINAL: Abdomen soft, non-tender, nondistended. MUSCULOSKELETAL: No cyanosis, or edema. BACK: Nontender without obvious deformity. No CVA tenderness. A/P Problem List: (1) Atrial fibrillation ICD Code: I48.91 - Unspecified atrial fibrillation (2) Anemia due to blood loss ICD Code: D50.0 - Iron deficiency anemia secondary to blood loss (chronic) (3) CKD (chronic kidney disease) stage 4, GFR 15-29 ml/min ICD Code: N18.4 - Chronic kidney disease, stage 4 (severe) Assessment and Plan Ms. Batres is an 86-year-old female with a history of atrial fibrillation who was admitted to the hospital due to hemoglobin 6.8. She was sent from [facility]. She underwent EGD with cauterization of one blood vessel. Patient is currently doing well. No fever chills or any bleeding. Hemoglobin is holding up. She received 2 units of blood during this admission. - Anemia due to acute GI blood loss - Status post EGD - Continue Protonix 40 mg by mouth twice a day - Patient could be discharged today. However we were informed by case management that patient will need another authorization for rehabilitation. - Rehabilitation authorization cannot be obtained before 03/23/2017. - We'll continue to provide supportive care - Atrial fibrillation - Hypothyroidism - Hypertension - Continue home medications diltiazem 240 mg daily, levothyroxine 112 g by mouth daily. - Will discontinue patient's home medication hydralazine 50 g daily at bedtime. - Currently patient is normotensive or slightly hypotensive. - We'll initiate amlodipine 2.5 mg daily with holding parameters. DNR. SCDs. Likely discharged when SNF and arranged. Charlene Mancera DO Mar 21, 2017 3:51 pm
[2017-03-21] MEDS ORDERED: PILL SPLITTER OTHER PRN (16:00)
[2017-03-21] MEDS: PANTOPRAZOLE SOD 40 MG DELAYED RELEASE TAB PO SCH (20:55)
[2017-03-22] VITALS (9 sets, daily range): BP systolic 94–134; BP diastolic 53–75; PULSE 65–92; RESP 18–24; TEMP 96.1–97.8; O2SAT 91–95
[2017-03-22 03:58] LABS: HEMATOCRIT 27.3 % (35.0-46.0); HEMOGLOBIN 9.1 GM/DL (11.6-15.3)
[2017-03-22 04:41] LABS: CALCIUM 8.4 MG/DL (8.5-10.1); CREATININE 4.08 MG/DL (0.50-1.00)
[2017-03-22] MEDS: LEVOTHYROXINE SODIUM 112 MCG TAB PO SCH (06:22)
[2017-03-22] MEDS: amLODIPine BESYLATE 5 MG TAB PO SCH (09:00)
[2017-03-22] MEDS: MAGNESIUM OXIDE 400 MG TAB PO SCH (09:58)
[2017-03-22] MEDS: PANTOPRAZOLE SOD 40 MG DELAYED RELEASE TAB PO SCH ×2 (09:58→22:42)
[2017-03-22] MEDS: FERROUS SULFATE 325 MG (65 MG ELEMENTAL IRON) TAB PO SCH ×3 (09:58→19:02)
[2017-03-22] MEDS: DILTIAZEM-CD 240 MG CAP ER PO SCH (09:58)
[2017-03-22] MEDS: PARICALCITOL 1 MCG CAP PO SCH (09:58)
[2017-03-22] MEDS: SODIUM CHLORIDE 0.9% FLUSH 10 ML FLUSH IV FLUSH SCH ×2 (10:01→21:00)
--- NOTE | 2017-03-22 11:47 | HHI.GIFU ---
Subjective Remarks Patient is resting in bed, no nausea, no vomiting, no hematemesis or bloody stools. (Wild Sandoval COMMUNICABLE DISEASE SPECIALIST) Objective Vitals I&O Vital Signs Date Time Temp Pulse Resp B/P (MAP) Pulse Ox O2 Delivery O2 Flow Rate FiO2 03/22/17 08:02 96.7 86 22 109/57 (74) 91 03/22/17 04:00 84 03/22/17 04:00 97.5 65 18 94/55 (68) 94 03/22/17 02:14 81 03/22/17 00:04 81 03/22/17 00:00 96.1 84 18 113/53 (73) 95 03/21/17 20:12 84 03/21/17 20:00 96.2 80 18 114/69 (84) 95 03/21/17 16:04 Room Air 03/21/17 16:02 95.4 83 18 109/54 (72) 94 03/21/17 12:06 108 03/21/17 11:55 96.5 59 16 121/76 (91) 92 03/21/17 11:55 92 Room Air I/O 03/21/17 03/21/17 03/21/17 03/22/17 03/22/17 03/22/17 07:00 15:00 23:00 07:00 15:00 23:00 Intake Total 120 ml 980 ml 120 ml Balance 120 ml 980 ml 120 ml Intake Oral 120 ml 480 ml 120 ml IV Total 100 ml Packed Cells 400 ml # Voids 4 2 1 1 # Bowel Movements 2 1 0 Laboratory Laboratory Tests Test 03/22/17 03:43 Hemoglobin 9.1 Hematocrit 27.3 Blood Urea Nitrogen 62 Creatinine 4.08 Random Glucose 88 Calcium Level 8.4 Sodium Level 144 Potassium Level 4.6 Chloride Level 115 Carbon Dioxide Level 21.0 Anion Gap 8 Estimat Glomerular Filtration Rate 10 Magnesium Level 2.2 Date/Time Source Procedure Growth Status 03/20/17 01:40 Urine Clean Catch Urine Culture - Preliminary Group D Enterococcus Resulted Imaging Last Impressions Abdomen/Pelvis CT 03/19/171941 Signed Impressions: Service Date/Time: March 20:12 - CONCLUSION: 1. No acute abnormality. 2. Mild stranding of the subcutaneous fat involving the left flank. This could relate to focal edema or cellulitis. No fluid collection. 3. Colonic diverticulosis. 4. Cardiomegaly with tiny bilateral pleural effusions and bibasilar atelectasis. Tae Vyas Jr., MD Physical Exam HEENT: normocephalic; atraumatic; no jaundice. Throat is clear. CHEST: Chest is clear to auscultation and percussion. CARDIAC: Regular rate and rhythm with no murmur gallop or rubs. ABDOMEN: Soft, nondistended, nontender;bowel sounds are present in all four quadrants. EXTREMITIES: No clubbing, cyanosis, or edema. SKIN: warm and dry SHIELD INSTALLER: alert and oriented. (Wild Sandoval) Assessment and Plan Assessment: (1) Anemia ICD Codes: D64.9 - Anemia, unspecified Status: Acute (2) GI bleed ICD Codes: K92.2 - Gastrointestinal hemorrhage, unspecified Status: Acute Plan Anemia- S/P EGD on 03/20/17---> Large duodenal ulcer, bx pending. CT scan shows diverticulosis H&H stable, no more bleeding Plan EGD in 2 months Avoid NSAIDs cont. protonix f/u with GI upon discharge Patient was seen by myself and Dr. Damian, note done on his behalf (Wild Sandoval) Physician Comments Patient seen and examined Agree with above Continue with current supportive care Monitor labs We will sign off (Ranulfo Damian MD) Problem Qualifiers (1) Anemia: Qualified Codes: D50.0 - Iron deficiency anemia secondary to blood loss ( chronic) (2) GI bleed: Qualified Codes: K92.2 - Gastrointestinal hemorrhage, unspecified Wild Sandoval Mar 22, 2017 11:47 Ranulfo Damian MD Mar 22, 2017 23:37
--- NOTE | 2017-03-22 14:47 | HHI.PR ---
Subjective Remarks Follow-up for GI bleed. Patient is currently doing well. No bleeding, no fever, chills. Objective Vitals Vital Signs Date Time Temp Pulse Resp B/P (MAP) Pulse Ox O2 Delivery O2 Flow Rate FiO2 03/22/17 11:54 96.5 92 22 134/75 (94) 92 03/22/17 08:02 96.7 86 22 109/57 (74) 91 03/22/17 04:00 84 03/22/17 04:00 97.5 65 18 94/55 (68) 94 03/22/17 02:14 81 03/22/17 00:04 81 03/22/17 00:00 96.1 84 18 113/53 (73) 95 03/21/17 20:12 84 03/21/17 20:00 96.2 80 18 114/69 (84) 95 03/21/17 16:04 Room Air 03/21/17 16:02 95.4 83 18 109/54 (72) 94 I/O 03/21/17 03/21/17 03/21/17 03/22/17 03/22/17 03/22/17 07:00 15:00 23:00 07:00 15:00 23:00 Intake Total 120 ml 980 ml 120 ml 360 ml Balance 120 ml 980 ml 120 ml 360 ml Intake Oral 120 ml 480 ml 120 ml 360 ml IV Total 100 ml Packed Cells 400 ml # Voids 4 2 1 1 # Bowel Movements 2 1 0 Result Diagram: 03/22/17 0343 03/22/17 0343 Imaging Last Impressions Abdomen/Pelvis CT 03/19/171941 Signed Impressions: Service Date/Time: March 20:12 - CONCLUSION: 1. No acute abnormality. 2. Mild stranding of the subcutaneous fat involving the left flank. This could relate to focal edema or cellulitis. No fluid collection. 3. Colonic diverticulosis. 4. Cardiomegaly with tiny bilateral pleural effusions and bibasilar atelectasis. Tae Vyas Jr., MD Objective Remarks GENERAL: Alert, NAD. SKIN: Warm and dry. HEAD: Normocephalic. EYES: No scleral icterus. No injection or drainage. NECK: Supple, trachea midline. No JVD or lymphadenopathy. CARDIOVASCULAR: Regular rate and rhythm without murmurs, gallops, or rubs. RESPIRATORY: Breath sounds equal bilaterally. No accessory muscle use. GASTROINTESTINAL: Abdomen soft, non-tender, nondistended. MUSCULOSKELETAL: No cyanosis, or edema. BACK: Nontender without obvious deformity. No CVA tenderness. Procedures EGD The esophagus this appeared to be unremarkable and within normal limits The stomach this too appeared to be unremarkable and within normal limits The duodenum there was a large duodenal sweep ulcer clean-based but there was one area of suspected visible vessel this was cauterized and no bleeding occurred the edges were slightly raised and edematous those were biopsied the rest of the duodenum was unremarkable A/P Problem List: (1) Atrial fibrillation ICD Code: I48.91 - Unspecified atrial fibrillation (2) Anemia due to blood loss ICD Code: D50.0 - Iron deficiency anemia secondary to blood loss (chronic) (3) CKD (chronic kidney disease) stage 4, GFR 15-29 ml/min ICD Code: N18.4 - Chronic kidney disease, stage 4 (severe) Assessment and Plan Ms. Batres is an 86-year-old female with a history of atrial fibrillation who was admitted to the hospital due to hemoglobin 6.8. She was sent from [facility]. She underwent EGD with cauterization of one blood vessel. Patient is currently doing well. No fever chills or any bleeding. Hemoglobin is holding up. She received 2 units of blood during this admission. - Anemia due to acute GI blood loss - Status post EGD - Continue Protonix 40 mg by mouth twice a day - Patient can be discharged pending insurance authorization. - Rehabilitation authorization cannot be obtained before 03/23/2017. - We'll continue to provide supportive care - Atrial fibrillation - Hypothyroidism - Hypertension - Continue home medications diltiazem 240 mg daily, levothyroxine 112 g by mouth daily. - Will discontinue patient's home medication hydralazine 50 g daily at bedtime. - Currently patient is normotensive or slightly hypotensive. - We'll continue amlodipine 2.5 mg daily with holding parameters. - In light of GI bleeding risk, we will hold off anti-coagulation. - However, [id number] score is at least 4. GI recommended no anti- coagulation for 1-2 weeks. - After 2 weeks, she should discuss with her physicians regarding anti- coagulation for Afib stroke risk reduction. - She has CKD stage IV. Apixaban 2.5mg BID would be appropriate for Afib anti -coagulation. - Acute kidney injury - Creatinine 4.29 --> 3.79 --> 4.08. - CKD Stage IV - Will get a renal US and nephrology consult. Patient follows up with Dr. Choudhary in the outpatient setting. DNR. SCDs. Charlene Mancera DO Mar 22, 2017 14:47
--- NOTE | 2017-03-22 19:17 | RADRPT ---
EXAM DATE/TIME: 03/22/2017 18:41 [facility] COMPARISON: No previous studies available for comparison. INDICATIONS : Increased BUN/Creatnine. MEDICAL HISTORY : Myocardial infarction. Hypercholesterolemia. Chronic obstructive pulmonary disease. Chest pain. Atria l fibrillation. Hypertension. Arthritis. SURGICAL HISTORY : Hysterectomy. Partial thyroidectomy. Bilateral cataract surgery. Right knee replacement. ENCOUNTER: Initial ACUITY: 1 day PAIN SCORE: 0/10 LOCATION: Bilateral flank MEASUREMENTS: RIGHT KIDNEY: 10.1 x x 5.5 cm LEFT KIDNEY: 8.8 x 3.5 x 5.0 cm FINDINGS: RIGHT KIDNEY: Renal cortex is normal in thickness and increased echotexture. No hydronephrosis, stone, or mass. 2 simple cysts in the mid and upper pole measures 34 x 32 x 37 mm and 40 x 36 x 36 mm. LEFT KIDNEY: Renal cortex is normal in thickness and increased echotexture. No hydronephrosis, stone, or mass. 2 simple cysts are seen one in the upper pole measuring 16 x 15 x 15 mm and lower pole measuring 19 x 20 x 17 mm. Echogenic focus lower pole measures 1 cm. BLADDER: Within normal limits given the degree of distension. CONCLUSION: 1. Echogenic kidneys which can be seen with medical renal disease. 2. Bilateral renal cysts. 3. Nonobstructing left renal calculus. Domingo Almaguer MD on March 22, 2017 at 19:14 Board Certified Radiologist. This report was verified electronically.
[2017-03-23] VITALS (8 sets, daily range): BP systolic 111–138; BP diastolic 52–75; PULSE 85–99; RESP 18–20; TEMP 95.8–96.8; O2SAT 92
[2017-03-23] MEDS: LEVOTHYROXINE SODIUM 112 MCG TAB PO SCH (07:00)
[2017-03-23] MEDS: DILTIAZEM-CD 240 MG CAP ER PO SCH (08:58)
[2017-03-23] MEDS: PARICALCITOL 1 MCG CAP PO SCH (08:58)
[2017-03-23] MEDS: PANTOPRAZOLE SOD 40 MG DELAYED RELEASE TAB PO SCH ×2 (08:58→20:49)
[2017-03-23] MEDS: FERROUS SULFATE 325 MG (65 MG ELEMENTAL IRON) TAB PO SCH ×3 (08:59→18:00)
[2017-03-23] MEDS: MAGNESIUM OXIDE 400 MG TAB PO SCH (08:59)
[2017-03-23] MEDS: amLODIPine BESYLATE 5 MG TAB PO SCH (08:59)
[2017-03-23] MEDS: SODIUM CHLORIDE 0.9% FLUSH 10 ML FLUSH IV FLUSH SCH ×2 (08:59→20:49)
--- NOTE | 2017-03-23 10:23 | PD.CONS ---
HPI Service Nephrology Consult Requested By Attending Reason for Consult SERJIO on CKD Primary Care Physician Unknown History of Present Illness Patient is a 86-year-old female with history of CHF, A. fib, and chronic kidney disease presents to the emergency room for evaluation of low hemoglobin. She is currently in [facility] after having been admitted to [facility] for 2 weeks. HGB was found to be 6.8. She follows with the traffic i manager, Dr. Choudhary. Per records states her renal function is around 18% at baseline and there are discussions of possibly starting dialysis. He states she has had no history of anemia. GFR today is at 10. (Yudith Tavarez) Review of Systems Constitutional: COMPLAINS OF: Fatigue Respiratory: DENIES: Cough, Snoring, Sputum production, Shortness of breath Cardiovascular: DENIES: Chest pain, Palpitations Gastrointestinal: DENIES: Abdominal pain Musculoskeletal: COMPLAINS OF: Muscle aches Integumentary: COMPLAINS OF: Rash (Yudith Tavarez) Past Family Social History Allergies: Coded Allergies: No Known Allergies (Unverified , 11/22/14) Past Medical History Per records Atrial fibrillation Arthritis CKD Hypertension Brain aneurysm Hypothyroidism COPD Past Surgical History Per records Brain aneurysm, status post clipping and craniotomy Bilateral cataract surgery Hysterectomy in 1971 Partial thyroidectomy 1996 Right total knee arthroplasty approximately 6 years ago Active Ordered Medications Current Medications Medications (Trade) Dose Ordered Sig/Mir Route Start Time Stop Time Status Last Admin (NS Flush) 2 ml UNSCH PRN IV FLUSH 03/19/17 22:00 (NS Flush) 2 ml BID IV FLUSH 03/20/17 09:00 03/23/17 08:59 (Narcan Inj) 0.4 mg UNSCH PRN IV PUSH 03/19/17 22:00 (Cardizem Cd) 240 mg DAILY PO 03/20/17 09:00 03/23/17 08:58 (Ferrous Sulfate) 325 mg TIDPC PO 03/20/17 09:30 03/23/17 08:59 (Synthroid) 112 mcg DAILY@0700 PO 03/20/17 07:00 03/23/17 07:00 (Zemplar) 1 mcg DAILY PO 03/20/17 09:00 03/23/17 08:58 (Mag-Ox) 400 mg DAILY PO 03/20/17 09:00 03/23/17 08:59 (Protonix) 40 mg Q12HR PO 03/21/17 21:00 03/23/17 08:58 (Norvasc) 2.5 mg DAILY PO 03/22/17 09:00 03/23/17 08:59 (Pill Splitter) 1 ea UNSCH PRN OTHER 03/21/17 16:00 Social History denies Smoking Denies ETOH At [facility] (Yudith Tavarez) Physical Exam Vital Signs Vital Signs Date Time Temp Pulse Resp B/P (MAP) Pulse Ox O2 Delivery O2 Flow Rate FiO2 03/23/17 08:00 96.6 99 18 127/75 (92) 92 03/23/17 03:32 96.7 98 20 111/52 (71) 92 03/22/17 23:38 97.8 89 18 112/59 (76) 92 03/22/17 19:47 97.1 90 19 130/62 (84) 92 03/22/17 15:47 96.1 83 24 115/54 (74) 92 03/22/17 11:54 96.5 92 22 134/75 (94) 92 Physical Exam GENERAL: Alert to self and date SKIN: Warm and dry. HEAD: Normocephalic. EYES: No scleral icterus. No injection or drainage. NECK: Supple, trachea midline. No JVD or lymphadenopathy. CARDIOVASCULAR: Regular rate and rhythm without murmurs, gallops, or rubs. RESPIRATORY: Breath sounds equal bilaterally. No accessory muscle use. GASTROINTESTINAL: Abdomen large, soft, non-tender, nondistended. MUSCULOSKELETAL: No cyanosis, or edema. BACK: Nontender without obvious deformity. No CVA tenderness. Laboratory Date/Time Source Procedure Growth Status 03/20/17 01:40 Urine Clean Catch Urine Culture - Final Complete (Yudith Tavarez) Result Diagram: 03/22/17 0343 03/22/17 0343 Imaging Last Impressions Renal Ultrasound 03/22/17 0000 Signed Impressions: Service Date/Time: Wednesday, March 22, 2017 18:41 - CONCLUSION: 1. Echogenic kidneys which can be seen with medical renal disease. 2. Bilateral renal cysts. 3. Nonobstructing left renal calculus. Domingo Almaguer MD Abdomen/Pelvis CT 03/19/171941 Signed Impressions: Service Date/Time: March 20:12 - CONCLUSION: 1. No acute abnormality. 2. Mild stranding of the subcutaneous fat involving the left flank. This could relate to focal edema or cellulitis. No fluid collection. 3. Colonic diverticulosis. 4. Cardiomegaly with tiny bilateral pleural effusions and bibasilar atelectasis. Tae Vyas Jr., MD (Yudith Tavarez) Assessment and Plan Problem List: (1) CKD (chronic kidney disease) stage 4, GFR 15-29 ml/min ICD Codes: N18.4 - Chronic kidney disease, stage 4 (severe) Plan: SERJIO on CKD followed by Dr. Choudhary outpatient. Worsening renal indices from GI bleed and poor renal profusion. Renal US: . Echogenic kidneys which can be seen with medical renal disease, bilateral renal cysts, and Nonobstructing left renal calculus. Creatinine up to 4.08 from 3.79 today and GFR 10 No edema present Will continue to monitor carefully and monitor I+O Renal panel in AM Avoid nephrotoxins (2) Anemia ICD Codes: D64.9 - Anemia, unspecified Status: Acute Plan: HGB stable 9.1 transfused 2 units of PRBC on admission S/P EGD on 03/20/17---> Large duodenal ulcer, bx pending. CT scan shows diverticulosis (3) Atrial fibrillation ICD Codes: I48.91 - Unspecified atrial fibrillation Plan: Rate controlled anticoagulation on hold with recent GI bleed (Yudith Tavarez) Problem List: (1) CKD (chronic kidney disease) stage 4, GFR 15-29 ml/min ICD Codes: N18.4 - Chronic kidney disease, stage 4 (severe) Plan: SERJIO on CKD followed by Dr. Choudhary outpatient. Worsening renal indices from GI bleed and poor renal profusion. Renal US: . Echogenic kidneys which can be seen with medical renal disease, bilateral renal cysts, and Nonobstructing left renal calculus. Creatinine up to 4.08 from 3.79 today and GFR 10 No edema present Will continue to monitor carefully and monitor I+O Renal panel in AM Avoid nephrotoxins. Patient has GFR of 18-19 in 2014, no new labs available since than. Now Creatinine is higher, Has Chronic kidney disease, possibly due to Hypertensive or renovascular disease. May have an element of SERJIO. Approaching end stage. I will check iron study and Po4. If not better, possible to start Dialysis. (2) Anemia ICD Codes: D64.9 - Anemia, unspecified Status: Acute Plan: HGB stable 9.1 transfused 2 units of PRBC on admission S/P EGD on 03/20/17---> Large duodenal ulcer, bx pending. CT scan shows diverticulosis (3) Atrial fibrillation ICD Codes: I48.91 - Unspecified atrial fibrillation Plan: Rate controlled anticoagulation on hold with recent GI bleed (Chaz Yanes MD) Problem Qualifiers (1) Anemia: Qualified Codes: D50.0 - Iron deficiency anemia secondary to blood loss ( chronic) Yudith Tavarez Mar 23, 2017 10:22 Chaz Yanes MD Mar 23, 2017 10:33
[2017-03-23] MEDS ORDERED: EPOETIN ALFA 20,000 UNITS/ML VIAL SQ ONE (12:00)
[2017-03-23 12:21] LABS: CALCIUM 8.7 MG/DL (8.5-10.1); CREATININE 4.15 MG/DL (0.50-1.00)
--- NOTE | 2017-03-23 12:24 | HHI.PR ---
Subjective Remarks Follow-up for GI bleed, SERJIO, CKD. Patient is currently doing well. Denies any chest pain, shortness of breath, fever or chills. She reports good urine output. Objective Vitals Vital Signs Date Time Temp Pulse Resp B/P (MAP) Pulse Ox O2 Delivery O2 Flow Rate FiO2 03/23/17 08:00 96.6 99 18 127/75 (92) 92 03/23/17 03:32 96.7 98 20 111/52 (71) 92 03/22/17 23:38 97.8 89 18 112/59 (76) 92 03/22/17 19:47 97.1 90 19 130/62 (84) 92 03/22/17 15:47 96.1 83 24 115/54 (74) 92 I/O 03/22/17 03/22/17 03/22/17 03/23/17 03/23/17 03/23/17 07:00 15:00 23:00 07:00 15:00 23:00 Intake Total 120 ml 360 ml 720 ml 240 ml Balance 120 ml 360 ml 720 ml 240 ml Intake Oral 120 ml 360 ml 720 ml 240 ml # Voids 1 5 2 # Bowel Movements 0 2 0 Result Diagram: 03/22/17 0343 03/22/17 0343 Imaging Last Impressions Renal Ultrasound 03/22/17 0000 Signed Impressions: Service Date/Time: Wednesday, March 22, 2017 18:41 - CONCLUSION: 1. Echogenic kidneys which can be seen with medical renal disease. 2. Bilateral renal cysts. 3. Nonobstructing left renal calculus. Domingo Almaguer MD Abdomen/Pelvis CT 03/19/171941 Signed Impressions: Service Date/Time: March 20:12 - CONCLUSION: 1. No acute abnormality. 2. Mild stranding of the subcutaneous fat involving the left flank. This could relate to focal edema or cellulitis. No fluid collection. 3. Colonic diverticulosis. 4. Cardiomegaly with tiny bilateral pleural effusions and bibasilar atelectasis. Tae Vyas Jr., MD Objective Remarks GENERAL: Alert, NAD. SKIN: Warm and dry. HEAD: Normocephalic. EYES: No scleral icterus. No injection or drainage. NECK: Supple, trachea midline. No JVD or lymphadenopathy. CARDIOVASCULAR: Regular rate and rhythm without murmurs, gallops, or rubs. RESPIRATORY: Breath sounds equal bilaterally. No accessory muscle use. GASTROINTESTINAL: Abdomen soft, non-tender, nondistended. MUSCULOSKELETAL: No cyanosis, or edema. BACK: Nontender without obvious deformity. No CVA tenderness. Procedures EGD The esophagus this appeared to be unremarkable and within normal limits The stomach this too appeared to be unremarkable and within normal limits The duodenum there was a large duodenal sweep ulcer clean-based but there was one area of suspected visible vessel this was cauterized and no bleeding occurred the edges were slightly raised and edematous those were biopsied the rest of the duodenum was unremarkable A/P Problem List: (1) Atrial fibrillation ICD Code: I48.91 - Unspecified atrial fibrillation (2) Anemia due to blood loss ICD Code: D50.0 - Iron deficiency anemia secondary to blood loss (chronic) (3) CKD (chronic kidney disease) stage 4, GFR 15-29 ml/min ICD Code: N18.4 - Chronic kidney disease, stage 4 (severe) Assessment and Plan Ms. Batres is an 86-year-old female with a history of atrial fibrillation who was admitted to the hospital due to hemoglobin 6.8. She was sent from [facility]. She underwent EGD with cauterization of one blood vessel. Patient is currently doing well. No fever chills or any bleeding. Hemoglobin is holding up. She received 2 units of blood during this admission. - Anemia due to acute GI blood loss - Status post EGD - Continue Protonix 40 mg by mouth twice a day - Patient can be discharged pending insurance authorization. - Rehabilitation authorization cannot be obtained before 03/23/2017. - We'll continue to provide supportive care - Acute kidney injury - Creatinine 4.29 --> 3.79 --> 4.08. - CKD Stage IV - Renal US shows medical renal disease. Nephrology on board. - BMP pending today. - BMP in the AM. If no improvement noticed, patient may need to start dialysis. - Atrial fibrillation - Hypothyroidism - Hypertension - Continue home medications diltiazem 240 mg daily, levothyroxine 112 g by mouth daily. - Will discontinue patient's home medication hydralazine 50 g daily at bedtime. - Currently patient is normotensive or slightly hypotensive. - We'll continue amlodipine 2.5 mg daily with holding parameters. - In light of GI bleeding risk, we will hold off anti-coagulation. - However, [id number] score is at least 4. GI recommended no anti- coagulation for 1-2 weeks. - After 2 weeks, she should discuss with her physicians regarding anti- coagulation for Afib stroke risk reduction. - She has CKD stage IV. Apixaban 2.5mg BID would be appropriate for Afib anti -coagulation. DNR. SCDs. Charlene Mancera DO Mar 23, 2017 12:24 pm
--- NOTE | 2017-03-23 14:18 | PQ ---
Physician Query Response Document PATIENT: MALENA FAJARDO : 1930 ADMIT DATE: 03/19/2017 10:03 PM DISCH DATE: RESPONDING PROVIDER #: chelsey QUERY TEXT: Conflicting Documentation Clarification A single mention or documentation of multiple diagnoses for the same clinical presentation appears in the record. Please clarify the diagnosis/diagnoses - .LOWER GI BLEED LIKELY DIVERTICULAR BLEED Please also document if the condition is: -- Confirmed and current -- Confirmed, treated and resolved -- Ruled out -- Other, please specify The patient's Clinical Indicators include: 03/20/17 Admission Diagnosis anemia, GI bleed HPI REFLECTS: In the emergency room, guaiac was done by ER PA which showed bright red blood. H Lower GI bleed likely diverticular bleed PER 03/20/17 GI CONSULT: GI bleed ICD Codes: K92.2 - Gastrointestinal hemorrhage, unspecified Status: Acute Plan Abdominal pain left and right lower quadrants, CT scan shows diverticulosis Patient states dark tarry stools for a week and a half long with symptoms of nausea, no vomiting. 03/20/17 EGD DONE W/ FINDINGS: The duodenum there was a large duodenal sweep ulcer clean-based but the re was one area of suspected visible vessel this was cauterized and no bleeding occurred the edges we re slightly raised and edematous those were biopsied the rest of the duodenum was unremarkable CLINICAL INDICATORS: 03/19/17 HGB - 7.3/ HCT - 22.7 03/20/17 REC'D TRANSFUSION 2U PRBC NO COLONOSCOPY DONE Query created by: Nat Huff on 03/23/2017 11:02 AM RESPONSE TEXT: Acute anemia - likely due to upper GI bleed as well as diverticulosis which is one of the common reas ons for GI bleed. Electronically signed by: Lucio Mancera DO 03/23/2017 2:14 PM
[2017-03-24] VITALS (9 sets, daily range): BP systolic 105–133; BP diastolic 53–89; PULSE 80–106; RESP 17–19; TEMP 96.7–97.7; O2SAT 92–95
[2017-03-24] MEDS: LEVOTHYROXINE SODIUM 112 MCG TAB PO SCH (05:43)
[2017-03-24 07:39] LABS: ALBUMIN 1.9 GM/DL (3.4-5.0); BICARBONATE 24.3 MEQ/L (21.0-32.0); BLOOD UREA NITROGEN 48 MG/DL (7-18); CALCIUM 8.9 MG/DL (8.5-10.1); CHLORIDE 114 MEQ/L (98-107); CREATININE 4.13 MG/DL (0.50-1.00); GLOMERULAR FILTRATION RATE 10 ML/MIN (>89); GLUCOSE,RANDOM 71 MG/DL (74-106); SODIUM (NA) 146 MEQ/L (136-145)
[2017-03-24 07:40] LABS: % SATURATION IRON PROFILE 16.6 % (20-50); IRON (FE) 26 MCG/DL (50-170); PHOSPHORUS 3.4 MG/DL (2.5-4.9); TOTAL IRON BINDING CAPACITY 157 MCG/DL (250-450)
[2017-03-24 07:43] LABS: FERRITIN 262 NG/ML (8-252)
[2017-03-24] MEDS: PANTOPRAZOLE SOD 40 MG DELAYED RELEASE TAB PO SCH ×2 (08:26→20:35)
[2017-03-24] MEDS: FERROUS SULFATE 325 MG (65 MG ELEMENTAL IRON) TAB PO SCH ×3 (08:26→18:35)
[2017-03-24] MEDS: MAGNESIUM OXIDE 400 MG TAB PO SCH (08:26)
[2017-03-24] MEDS: DILTIAZEM-CD 240 MG CAP ER PO SCH (08:26)
[2017-03-24] MEDS: PARICALCITOL 1 MCG CAP PO SCH (08:27)
[2017-03-24] MEDS: amLODIPine BESYLATE 5 MG TAB PO SCH (08:27)
[2017-03-24] MEDS: SODIUM CHLORIDE 0.9% FLUSH 10 ML FLUSH IV FLUSH SCH ×2 (08:27→20:35)
--- NOTE | 2017-03-24 09:30 | HHI.NPPN ---
Subjective Complaints: Anorexia Renal Failure: Stage V History of Present Illness Patient is a 86-year-old female with history of CHF, A. fib, and chronic kidney disease presents to the emergency room for evaluation of low hemoglobin. She is currently in [facility] after having been admitted to [facility] for 2 weeks. HGB was found to be 6.8. She follows with the chip machine operator, Dr. Choudhary. Per records states her renal function is around 18% at baseline and there are discussions of possibly starting dialysis. He states she has had no history of anemia. GFR today is at 10. Additional Remarks Resting comfortably. Denies any nausea but reports poor appetite. No SOB. Minimal edema (Yudith Tavarez) Review of Systems Respiratory Respiratory Remarks Denies SOB (Yudith Tavarez) Cardiovascular Cardiac Remarks Denies CP (Yudith Tavarez) Gastrointestinal GI Remarks Denies abdominal pain. Poor appetite (Yudith Tavraez) Genitourinary Remarks No dysuria (Yudith Tavarez) Objective Data Data Vital Signs Date Time Temp Pulse Resp B/P (MAP) Pulse Ox O2 Delivery O2 Flow Rate FiO2 03/24/17 08:00 97.5 81 17 123/74 (90) 95 03/24/17 04:17 97.5 101 18 118/82 (94) 92 03/24/17 03:49 80 03/23/17 23:59 96.8 90 18 138/63 (88) 92 03/23/17 23:40 92 03/23/17 22:13 Room Air 03/23/17 21:03 96.7 85 19 114/69 (84) 92 03/23/17 19:44 97 03/23/17 16:00 96.1 88 18 114/75 (88) 92 03/23/17 12:00 95.8 88 19 113/71 (85) 92 (Yudith Tavarez) -: 03/22/17 0343 03/24/17 0520 Imaging Last Impressions Renal Ultrasound 03/22/17 0000 Signed Impressions: Service Date/Time: Wednesday, March 22, 2017 18:41 - CONCLUSION: 1. Echogenic kidneys which can be seen with medical renal disease. 2. Bilateral renal cysts. 3. Nonobstructing left renal calculus. Domingo Almaguer MD Abdomen/Pelvis CT 03/19/171941 Signed Impressions: Service Date/Time: March 20:12 - CONCLUSION: 1. No acute abnormality. 2. Mild stranding of the subcutaneous fat involving the left flank. This could relate to focal edema or cellulitis. No fluid collection. 3. Colonic diverticulosis. 4. Cardiomegaly with tiny bilateral pleural effusions and bibasilar atelectasis. Tae Vyas Jr., MD (GellermannYudith M. RADIO INTERFERENCE EXPERT) Physical Exam General Appearance: No Acute Distress, Comfortable, Obese (GellermannYudith M. [employer]IO INTERFERENCE EXPERT) Eyes Eye Exam: Pupils Equal (GellermannYudith M. [employer]IO INTERFERENCE EXPERT) Pulmonary Resp Exam: Clear Bilaterally, No Distress (GellermannYudtih M. RADIO INTERFERENCE EXPERT) Cardiology CV Exam: Normal Sinus Rhythm (GellermannYudith M. [employer]IO INTERFERENCE EXPERT) Gastrointestinal/Abdomen GI Exam: Soft, Non-Tender, Bowel Sounds Present (GellermannYudith M. RADIO INTERFERENCE EXPERT) Genitourinary Exam: Flank Non-Tender (GellermannYudith M. [employer]IO INTERFERENCE EXPERT) Integumentary Skin Exam: Clear, Warm (GellermannYudith M. [employer]IO INTERFERENCE EXPERT) Extremeties Extremities Exam: Trace Edema Extremeties Remarks lower extremity (GellermannYudith M. RADIO INTERFERENCE EXPERT) Psychiatric Psych Exam: Appropriate Responses (GellermannYudith M. RADIO INTERFERENCE EXPERT) Assessment/Plan Assessment Summary: SERJIO/Acute Renal Failure, CKD Stage V Electrolyte Assessment: Hypernatremia Problem List: (1) CKD (chronic kidney disease) stage 4, GFR 15-29 ml/min ICD Codes: N18.4 - Chronic kidney disease, stage 4 (severe) Plan: SERJIO on CKD followed by Dr. Choudhary outpatient. Worsening renal indices from GI bleed and poor renal profusion. Renal US: . Echogenic kidneys which can be seen with medical renal disease, bilateral renal cysts, and Nonobstructing left renal calculus. Creatinine essential unchanged at 4.13 and GFR 10 Minimal lower extremity edema present Will continue to monitor carefully and monitor I+O Avoid nephrotoxins. Patient has GFR of 18-19 in 2014, no new labs available since than. Now Creatinine is higher, Has Chronic kidney disease, possibly due to Hypertensive or renovascular disease. May have an element of SERJIO. Approaching end stage. I will check iron study and Po4. Phosphorus WNL Iron level low. If not better, possible to start Dialysis. (2) Anemia ICD Codes: D64.9 - Anemia, unspecified Status: Acute Plan: HGB stable 9.1 transfused 2 units of PRBC on admission S/P EGD on 03/20/17---> Large duodenal ulcer, bx pending. CT scan shows diverticulosis (3) Atrial fibrillation ICD Codes: I48.91 - Unspecified atrial fibrillation Plan: Rate controlled anticoagulation on hold with recent GI bleed (Yudith Tavarez) Problem List: (1) CKD (chronic kidney disease) stage 4, GFR 15-29 ml/min ICD Codes: N18.4 - Chronic kidney disease, stage 4 (severe) Plan: SERJIO on CKD followed by Dr. Choudhary outpatient. Worsening renal indices from GI bleed and poor renal profusion. Renal US: . Echogenic kidneys which can be seen with medical renal disease, bilateral renal cysts, and Nonobstructing left renal calculus. Creatinine essential unchanged at 4.13 and GFR 10 Minimal lower extremity edema present Will continue to monitor carefully and monitor I+O Avoid nephrotoxins. Patient has GFR of 18-19 in 2014, no new labs available since than. Now Creatinine is higher, Has Chronic kidney disease, possibly due to Hypertensive or renovascular disease. May have an element of SERJIO. Approaching end stage. Phosphorus WNL Iron level low, replace IV. If not better, possible to start Dialysis. No urgent need for Dialysis. I called the Son, home Tel. is disconnected and no answer on Cell Phone. I will try tomorrow. (2) Anemia ICD Codes: D64.9 - Anemia, unspecified Status: Acute Plan: HGB stable 9.1 transfused 2 units of PRBC on admission S/P EGD on 03/20/17---> Large duodenal ulcer, bx pending. CT scan shows diverticulosis (3) Atrial fibrillation ICD Codes: I48.91 - Unspecified atrial fibrillation Plan: Rate controlled anticoagulation on hold with recent GI bleed (Chaz Yanes MD) Problem Qualifiers (1) Anemia: Qualified Codes: D50.0 - Iron deficiency anemia secondary to blood loss ( chronic) Yudith Tavarez Mar 24, 2017 09:30 Chaz Yanes MD Mar 24, 2017 15:22
--- NOTE | 2017-03-24 10:18 | HHI.PR ---
Subjective Remarks Follow-up for GI bleed, SERJIO, CKD. Patient is currently doing well. No acute concerns. No fever, chills. Objective Vitals Vital Signs Date Time Temp Pulse Resp B/P (MAP) Pulse Ox O2 Delivery O2 Flow Rate FiO2 03/24/17 08:00 97.5 81 17 123/74 (90) 95 03/24/17 04:17 97.5 101 18 118/82 (94) 92 03/24/17 03:49 80 03/23/17 23:59 96.8 90 18 138/63 (88) 92 03/23/17 23:40 92 03/23/17 22:13 Room Air 03/23/17 21:03 96.7 85 19 114/69 (84) 92 03/23/17 19:44 97 03/23/17 16:00 96.1 88 18 114/75 (88) 92 03/23/17 12:00 95.8 88 19 113/71 (85) 92 I/O 03/23/17 03/23/17 03/23/17 03/24/17 03/24/17 03/24/17 07:00 15:00 23:00 07:00 15:00 23:00 Intake Total 240 ml 480 ml 240 ml Balance 240 ml 480 ml 240 ml Intake Oral 240 ml 480 ml 240 ml # Voids 2 1 3 2 # Bowel Movements 0 0 0 Result Diagram: 03/22/17 0343 03/24/17 0520 Imaging Last Impressions Renal Ultrasound 03/22/17 0000 Signed Impressions: Service Date/Time: Wednesday, March 22, 2017 18:41 - CONCLUSION: 1. Echogenic kidneys which can be seen with medical renal disease. 2. Bilateral renal cysts. 3. Nonobstructing left renal calculus. Domingo Almaguer MD Abdomen/Pelvis CT 03/19/17 194 Signed Impressions: Service Date/Time: March 20:12 - CONCLUSION: 1. No acute abnormality. 2. Mild stranding of the subcutaneous fat involving the left flank. This could relate to focal edema or cellulitis. No fluid collection. 3. Colonic diverticulosis. 4. Cardiomegaly with tiny bilateral pleural effusions and bibasilar atelectasis. Tae Vyas Jr., MD Objective Remarks GENERAL: Alert, NAD. SKIN: Warm and dry. HEAD: Normocephalic. EYES: No scleral icterus. No injection or drainage. NECK: Supple, trachea midline. No JVD or lymphadenopathy. CARDIOVASCULAR: Regular rate and rhythm without murmurs, gallops, or rubs. RESPIRATORY: Breath sounds equal bilaterally. No accessory muscle use. GASTROINTESTINAL: Abdomen soft, non-tender, nondistended. MUSCULOSKELETAL: No cyanosis, or edema. BACK: Nontender without obvious deformity. No CVA tenderness. Procedures EGD The esophagus this appeared to be unremarkable and within normal limits The stomach this too appeared to be unremarkable and within normal limits The duodenum there was a large duodenal sweep ulcer clean-based but there was one area of suspected visible vessel this was cauterized and no bleeding occurred the edges were slightly raised and edematous those were biopsied the rest of the duodenum was unremarkable A/P Problem List: (1) Atrial fibrillation ICD Code: I48.91 - Unspecified atrial fibrillation (2) Anemia due to blood loss ICD Code: D50.0 - Iron deficiency anemia secondary to blood loss (chronic) (3) CKD (chronic kidney disease) stage 4, GFR 15-29 ml/min ICD Code: N18.4 - Chronic kidney disease, stage 4 (severe) Assessment and Plan Ms. Batres is an 86-year-old female with a history of atrial fibrillation who was admitted to the hospital due to hemoglobin 6.8. She was sent from [facility]. She underwent EGD with cauterization of one blood vessel. Patient is currently doing well. No fever chills or any bleeding. Hemoglobin is holding up. She received 2 units of blood during this admission. - Anemia due to acute GI blood loss - Status post EGD - Continue Protonix 40 mg by mouth twice a day - We'll continue to provide supportive care - H&H stable. Hgb 9.1 today. - Acute kidney injury - Creatinine 4.29 --> 3.79 --> 4.08 --> 4.13. - CKD Stage IV - Renal US shows medical renal disease. Nephrology on board. - If no improvement noticed, patient may need to start dialysis. - Waiting for Nephrology evaluation today. - Atrial fibrillation - Hypothyroidism - Hypertension - Continue home medications diltiazem 240 mg daily, levothyroxine 112 g by mouth daily. - Will discontinue patient's home medication hydralazine 50 g daily at bedtime. - Currently patient is normotensive or slightly hypotensive. - We'll continue amlodipine 2.5 mg daily with holding parameters. - In light of GI bleeding risk, we will hold off anti-coagulation. - However, [id number] score is at least 4. GI recommended no anti- coagulation for 1-2 weeks. - After 2 weeks, she should discuss with her physicians regarding anti- coagulation for Afib stroke risk reduction. - She has CKD stage IV. Apixaban 2.5mg BID would be appropriate for Afib anti -coagulation. DNR. SCDs. We are not using Lovenox/Heparin for DVT prophylaxis due to concern over GI bleed. Charlene Mancera DO Mar 24, 2017 10:18 am
[2017-03-24] MEDS: IRON SUCROSE INJ 100 MG in SODIUM CHLORIDE 0.9% INJ 100 ML IV SCH (18:35)
[2017-03-25] VITALS (14 sets, daily range): BP systolic 107–148; BP diastolic 55–78; PULSE 75–105; RESP 18–22; TEMP 95.6–97.5; O2SAT 91–98
[2017-03-25] MEDS: LEVOTHYROXINE SODIUM 112 MCG TAB PO SCH (06:41)
[2017-03-25 07:15] LABS: CALCIUM 8.6 MG/DL (8.5-10.1); CREATININE 4.07 MG/DL (0.50-1.00)
--- NOTE | 2017-03-25 08:32 | HHI.NPPN ---
Subjective Complaints: Anorexia Renal Failure: Stage V History of Present Illness Patient is a 86-year-old female with history of CHF, A. fib, and chronic kidney disease presents to the emergency room for evaluation of low hemoglobin. She is currently in [facility] after having been admitted to [facility] for 2 weeks. HGB was found to be 6.8. She follows with the civil cad designer, Dr. Choudhary. Per records states her renal function is around 18% at baseline and there are discussions of possibly starting dialysis. He states she has had no history of anemia. GFR today is at 10. Additional Remarks Resting comfortably this morning. Alert and oriented. Denies any SOB. Minimal edema. Good appetite (Yudith Tavarez) Review of Systems Respiratory Respiratory Remarks Denies SOB (Yudith Tavarez) Cardiovascular Cardiac Remarks Denies CP (Yudith Tavarez) Gastrointestinal GI Remarks Denies abdominal pain. (Yudith Tavarez) Genitourinary Remarks No dysuria (Yudith Tavarez) Objective Data Data Vital Signs Date Time Temp Pulse Resp B/P (MAP) Pulse Ox O2 Delivery O2 Flow Rate FiO2 03/25/17 08:00 96 03/25/17 04:42 103 03/25/17 03:13 96.7 87 18 126/55 (78) 92 03/24/17 23:54 88 03/24/17 23:36 97.4 84 18 105/53 (70) 92 03/24/17 21:57 Room Air 03/24/17 19:43 102 03/24/17 19:42 96.7 87 19 121/63 (82) 92 03/24/17 16:29 97.7 92 17 133/67 (89) 94 03/24/17 12:21 97.7 106 18 132/89 (103) 93 (Yudith Tavarez) -: 03/22/17 0343 03/25/17 0539 Physical Exam General Appearance: No Acute Distress, Comfortable, Obese (Yudith Tavarez) Eyes Eye Exam: Pupils Equal (Yudith Tavarez) Pulmonary Resp Exam: Clear Bilaterally, No Distress (Yudith Tavarez) Cardiology CV Exam: Normal Sinus Rhythm (Yudith Tavarez) Gastrointestinal/Abdomen GI Exam: Soft, Non-Tender, Bowel Sounds Present (Yudith Tavarez) Genitourinary Exam: Flank Non-Tender (Yudith Tavarez) Integumentary Skin Exam: Clear, Warm (Yudith Tavarez) Extremeties Extremities Exam: Trace Edema Extremeties Remarks lower extremity (Yudith Tavarez) Psychiatric Psych Exam: Appropriate Responses (Yudith Tavarez) Assessment/Plan Assessment Summary: SERJIO/Acute Renal Failure, CKD Stage V Electrolyte Assessment: Hypernatremia Problem List: (1) CKD (chronic kidney disease) stage 4, GFR 15-29 ml/min ICD Codes: N18.4 - Chronic kidney disease, stage 4 (severe) Plan: SERJIO on CKD followed by Dr. Choudhary outpatient. Worsening renal indices from GI bleed and poor renal profusion. Patient has GFR of 18-19 in 2014, no new labs available since than. Has Chronic kidney disease, possibly due to Hypertensive or renovascular disease. May have an element of SERJIO. Approaching end stage. Renal US: . Echogenic kidneys which can be seen with medical renal disease, bilateral renal cysts, and Nonobstructing left renal calculus. Creatinine essential unchanged at 4.07 and GFR 10 Potassium has remained WNL Minimal lower extremity edema present Will continue to monitor carefully and monitor I+O, nonoliguric Avoid nephrotoxins. Iron level low, replace IV yesterday No urgent need for Dialysis. Dr. Yanes tried to call Son yesterday but home Tel. is disconnected and no answer on Cell Phone. (2) Anemia ICD Codes: D64.9 - Anemia, unspecified Status: Acute Plan: transfused 2 units of PRBC on admission S/P EGD on 03/20/17---> Large duodenal ulcer, bx pending. CT scan shows diverticulosis IV iron replacement yesterday (3) Atrial fibrillation ICD Codes: I48.91 - Unspecified atrial fibrillation Plan: Rate controlled anticoagulation on hold with recent GI bleed (Yudith Tavarez) Problem List: (1) CKD (chronic kidney disease) stage 4, GFR 15-29 ml/min ICD Codes: N18.4 - Chronic kidney disease, stage 4 (severe) Plan: SERJIO on CKD followed by Dr. Choudhary outpatient. Worsening renal indices from GI bleed and poor renal profusion. Patient has GFR of 18-19 in 2014, no new labs available since than. Has Chronic kidney disease, possibly due to Hypertensive or renovascular disease. May have an element of SERJIO. Approaching end stage. Renal US: . Echogenic kidneys which can be seen with medical renal disease, bilateral renal cysts, and Nonobstructing left renal calculus. Creatinine essential unchanged at 4.07 and GFR 10 Potassium has remained WNL Minimal lower extremity edema present Will continue to monitor carefully and monitor I+O, nonoliguric Avoid nephrotoxins. Iron level low, replace IV yesterday No urgent need for Dialysis. See other note. (2) Anemia ICD Codes: D64.9 - Anemia, unspecified Status: Acute Plan: transfused 2 units of PRBC on admission S/P EGD on 03/20/17---> Large duodenal ulcer, bx pending. CT scan shows diverticulosis IV iron replacement yesterday (3) Atrial fibrillation ICD Codes: I48.91 - Unspecified atrial fibrillation Plan: Rate controlled anticoagulation on hold with recent GI bleed (Chaz Yanes MD) Problem Qualifiers (1) Anemia: Qualified Codes: D50.0 - Iron deficiency anemia secondary to blood loss ( chronic) Yudith Tavarez Mar 25, 2017 08:32 Chaz Yanes MD Mar 25, 2017 12:31
[2017-03-25] MEDS: FERROUS SULFATE 325 MG (65 MG ELEMENTAL IRON) TAB PO SCH ×3 (10:31→18:12)
[2017-03-25] MEDS: PANTOPRAZOLE SOD 40 MG DELAYED RELEASE TAB PO SCH ×2 (10:31→21:25)
[2017-03-25] MEDS: DILTIAZEM-CD 240 MG CAP ER PO SCH (10:31)
[2017-03-25] MEDS: MAGNESIUM OXIDE 400 MG TAB PO SCH (10:31)
[2017-03-25] MEDS: PARICALCITOL 1 MCG CAP PO SCH (10:31)
[2017-03-25] MEDS: amLODIPine BESYLATE 5 MG TAB PO SCH (10:31)
[2017-03-25] MEDS: IRON SUCROSE INJ 100 MG in SODIUM CHLORIDE 0.9% INJ 100 ML IV SCH (10:32)
[2017-03-25] MEDS: SODIUM CHLORIDE 0.9% FLUSH 10 ML FLUSH IV FLUSH SCH ×2 (10:32→21:26)
--- NOTE | 2017-03-25 12:30 | HHI.NPPN ---
Subjective Complaints: Anorexia Renal Failure: Stage V History of Present Illness Patient is a 86-year-old female with history of CHF, A. fib, and chronic kidney disease presents to the emergency room for evaluation of low hemoglobin. She is currently in [facility] after having been admitted to [facility] for 2 weeks. HGB was found to be 6.8. She follows with the well drill operator, Dr. Choudhary. Per records states her renal function is around 18% at baseline and there are discussions of possibly starting dialysis. He states she has had no history of anemia. GFR today is at 10. Additional Remarks Resting comfortably this morning. Alert and oriented. Denies any SOB. Minimal edema. Good appetite Review of Systems Respiratory Respiratory Remarks Denies SOB Cardiovascular Cardiac Remarks Denies CP Gastrointestinal GI Remarks Denies abdominal pain. Genitourinary Remarks No dysuria Objective Data Data Vital Signs Date Time Temp Pulse Resp B/P (MAP) Pulse Ox O2 Delivery O2 Flow Rate FiO2 03/25/17 11:56 99 03/25/17 11:32 90 03/25/17 08:00 95.6 105 21 129/71 (90) 91 03/25/17 08:00 96 03/25/17 04:42 103 03/25/17 03:13 96.7 87 18 126/55 (78) 92 03/24/17 23:54 88 03/24/17 23:36 97.4 84 18 105/53 (70) 92 03/24/17 21:57 Room Air 03/24/17 19:43 102 03/24/17 19:42 96.7 87 19 121/63 (82) 92 03/24/17 16:29 97.7 92 17 133/67 (89) 94 -: 03/22/17 0343 03/25/17 0539 Physical Exam General Appearance: No Acute Distress, Comfortable, Obese Eyes Eye Exam: Pupils Equal Pulmonary Resp Exam: Clear Bilaterally, No Distress Cardiology CV Exam: Normal Sinus Rhythm Gastrointestinal/Abdomen GI Exam: Soft, Non-Tender, Bowel Sounds Present Genitourinary Exam: Flank Non-Tender Integumentary Skin Exam: Clear, Warm Extremeties Extremities Exam: Trace Edema Psychiatric Psych Exam: Appropriate Responses Assessment/Plan Assessment Summary: SERJIO/Acute Renal Failure, CKD Stage V Electrolyte Assessment: Hypernatremia Problem List: (1) CKD (chronic kidney disease) stage 4, GFR 15-29 ml/min ICD Codes: N18.4 - Chronic kidney disease, stage 4 (severe) Plan: SERJIO on CKD followed by Dr. Choudhary outpatient. Worsening renal indices from GI bleed and poor renal profusion. Patient has GFR of 18-19 in 2014, no new labs available since than. Has Chronic kidney disease, possibly due to Hypertensive or renovascular disease. May have an element of SERJIO. Approaching end stage. Renal US: . Echogenic kidneys which can be seen with medical renal disease, bilateral renal cysts, and Nonobstructing left renal calculus. Creatinine essential unchanged at 4.07 and GFR 10 Potassium has remained WNL Minimal lower extremity edema present Will continue to monitor carefully and monitor I+O, nonoliguric Avoid nephrotoxins. Iron level low, replace IV yesterday No urgent need for Dialysis. I spoke to patient and Son on the phone. He will discuss with the mother and let me know. (2) Anemia ICD Codes: D64.9 - Anemia, unspecified Status: Acute Plan: transfused 2 units of PRBC on admission S/P EGD on 03/20/17---> Large duodenal ulcer, bx pending. CT scan shows diverticulosis IV iron replacement yesterday (3) Atrial fibrillation ICD Codes: I48.91 - Unspecified atrial fibrillation Plan: Rate controlled anticoagulation on hold with recent GI bleed Problem Qualifiers (1) Anemia: Qualified Codes: D50.0 - Iron deficiency anemia secondary to blood loss ( chronic) Chaz Yanes MD Mar 25, 2017 12:30
--- NOTE | 2017-03-25 12:43 | HHI.PR ---
Subjective Remarks Follow-up for GI bleed, SERJIO, CKD. Patient is currently doing well. Denies any chest pain, shortness of breath, fever or chills. She wants to go home. Objective Vitals Vital Signs Date Time Temp Pulse Resp B/P (MAP) Pulse Ox O2 Delivery O2 Flow Rate FiO2 03/25/17 12:20 Nasal Cannula 2.00 03/25/17 11:56 99 03/25/17 11:32 90 03/25/17 08:00 95.6 105 21 129/71 (90) 91 03/25/17 08:00 96 03/25/17 04:42 103 03/25/17 03:13 96.7 87 18 126/55 (78) 92 03/24/17 23:54 88 03/24/17 23:36 97.4 84 18 105/53 (70) 92 03/24/17 21:57 Room Air 03/24/17 19:43 102 03/24/17 19:42 96.7 87 19 121/63 (82) 92 03/24/17 16:29 97.7 92 17 133/67 (89) 94 I/O 03/24/17 03/24/17 03/24/17 03/25/17 03/25/17 03/25/17 07:00 15:00 23:00 07:00 15:00 23:00 Intake Total 240 ml 1185 ml 240 ml Balance 240 ml 1185 ml 240 ml Intake Oral 240 ml 1080 ml 240 ml IV Total 105 ml # Voids 2 6 2 # Bowel Movements 0 2 0 Result Diagram: 03/22/17 0343 03/25/17 0539 Objective Remarks GENERAL: Alert, NAD. SKIN: Warm and dry. HEAD: Normocephalic. EYES: No scleral icterus. No injection or drainage. NECK: Supple, trachea midline. No JVD or lymphadenopathy. CARDIOVASCULAR: Regular rate and rhythm without murmurs, gallops, or rubs. RESPIRATORY: Breath sounds equal bilaterally. No accessory muscle use. GASTROINTESTINAL: Abdomen soft, non-tender, nondistended. MUSCULOSKELETAL: No cyanosis, or edema. BACK: Nontender without obvious deformity. No CVA tenderness. Procedures EGD The esophagus this appeared to be unremarkable and within normal limits The stomach this too appeared to be unremarkable and within normal limits The duodenum there was a large duodenal sweep ulcer clean-based but there was one area of suspected visible vessel this was cauterized and no bleeding occurred the edges were slightly raised and edematous those were biopsied the rest of the duodenum was unremarkable A/P Problem List: (1) Atrial fibrillation ICD Code: I48.91 - Unspecified atrial fibrillation (2) Anemia due to blood loss ICD Code: D50.0 - Iron deficiency anemia secondary to blood loss (chronic) (3) CKD (chronic kidney disease) stage 4, GFR 15-29 ml/min ICD Code: N18.4 - Chronic kidney disease, stage 4 (severe) Assessment and Plan Ms. Batres is an 86-year-old female with a history of atrial fibrillation who was admitted to the hospital due to hemoglobin 6.8. She was sent from [facility]. She underwent EGD with cauterization of one blood vessel. Patient is currently doing well. No fever chills or any bleeding. Hemoglobin is holding up. She received 2 units of blood during this admission. - Anemia due to acute GI blood loss - Status post EGD - Continue Protonix 40 mg by mouth twice a day - We'll continue to provide supportive care - H&H stable. Hgb 9.1 - Acute kidney injury - Creatinine 4.29 --> 3.79 --> 4.08 --> 4.13 --> 4.07 - CKD Stage IV - Renal US shows medical renal disease. Nephrology on board. - If no improvement noticed, patient may need to start dialysis. - Discussed with Nephrology. Dr. Yanes has discussed with patient's son will discuss with patient regarding dialysis. - Patient likely will need outpatient dialysis arrangement. Her regular failure analysis technician is Dr. Brett Choudhary. - Atrial fibrillation - Hypothyroidism - Hypertension - Continue home medications diltiazem 240 mg daily, levothyroxine 112 g by mouth daily. - Will discontinue patient's home medication hydralazine 50 g daily at bedtime. - Currently patient is normotensive or slightly hypotensive. - We'll continue amlodipine 2.5 mg daily with holding parameters. - In light of GI bleeding risk, we will hold off anti-coagulation. - However, [id number] score is at least 4. GI recommended no anti- coagulation for 1-2 weeks. EGD was done on 03/20/2017. - After 2 weeks, she should discuss with her physicians regarding anti- coagulation for Afib stroke risk reduction. - She has CKD stage IV. Apixaban 2.5mg BID would be appropriate for Afib anti -coagulation. DNR. SCDs. We are not using Lovenox/Heparin for DVT prophylaxis due to concern over GI bleed. Charlene Mancera DO Mar 25, 2017 12:43 pm
[2017-03-26] VITALS (7 sets, daily range): BP systolic 112–123; BP diastolic 60–77; PULSE 73–96; RESP 18–20; TEMP 96.1–97.5; O2SAT 95–97
[2017-03-26] MEDS: LEVOTHYROXINE SODIUM 112 MCG TAB PO SCH (06:34)
--- NOTE | 2017-03-26 08:52 | HHI.NPPN ---
Subjective Complaints: Anorexia Renal Failure: Stage V History of Present Illness Patient is a 86-year-old female with history of CHF, A. fib, and chronic kidney disease presents to the emergency room for evaluation of low hemoglobin. She is currently in [facility] after having been admitted to [facility] for 2 weeks. HGB was found to be 6.8. She follows with the motel manager, Dr. Choudhary. Per records states her renal function is around 18% at baseline and there are discussions of possibly starting dialysis. He states she has had no history of anemia. GFR today is at 10. Additional Remarks Resting comfortably this morning. Denies any SOB. Minimal edema. (Yudith Tavarez) Review of Systems Respiratory Respiratory Remarks Denies SOB (Yudith Tavarez) Cardiovascular Cardiac Remarks Denies CP (Yudith Tavarez) Gastrointestinal GI Remarks Denies abdominal pain. (Yudith Tavarez) Genitourinary Remarks No dysuria (Yudith Tavarez) Objective Data Data 03/26/17 03/27/17 19:00 07:00 Intake Total 240 ml Balance 240 ml Intake Oral 240 ml # Voids 3 # Bowel Movements 0 Vital Signs Date Time Temp Pulse Resp B/P (MAP) Pulse Ox O2 Delivery O2 Flow Rate FiO2 03/26/17 04:30 89 03/26/17 04:20 96.9 91 18 115/77 (90) 95 03/26/17 00:15 93 03/25/17 23:30 97.5 84 20 107/75 (86) 95 03/25/17 21:40 96.7 92 20 114/70 (85) 95 03/25/17 20:00 75 03/25/17 20:00 95 Nasal Cannula 2.00 03/25/17 17:55 93 03/25/17 16:59 89 03/25/17 16:00 96.8 77 22 117/78 (91) 93 03/25/17 15:14 76 03/25/17 14:00 95 03/25/17 13:40 96 Nasal Cannula 2.00 03/25/17 12:20 Nasal Cannula 2.00 03/25/17 12:00 96.6 105 19 127/58 (81) 96 03/25/17 11:56 99 03/25/17 11:32 90 (Yudith Tavarez) -: 03/22/17 0343 03/25/17 0539 Physical Exam General Appearance: No Acute Distress, Comfortable, Obese (Yudith Tavarez) Eyes Eye Exam: Pupils Equal (Yudith Tavarez) Pulmonary Resp Exam: Clear Bilaterally, No Distress (Yudith Tavarez) Cardiology CV Exam: Normal Sinus Rhythm (Yudith Tavarez) Gastrointestinal/Abdomen GI Exam: Soft, Non-Tender, Bowel Sounds Present (Yudith Tavarez) Genitourinary Exam: Flank Non-Tender (Yudith Tavarez) Integumentary Skin Exam: Clear, Warm (Yudith Tavarez) Extremeties Extremities Exam: Trace Edema Extremeties Remarks lower extremity (Yudith Tavarez) Psychiatric Psych Exam: Appropriate Responses (Yudith Tavarez) Assessment/Plan Assessment Summary: SERJIO/Acute Renal Failure, CKD Stage V Electrolyte Assessment: Hypernatremia Problem List: (1) CKD (chronic kidney disease) stage 4, GFR 15-29 ml/min ICD Codes: N18.4 - Chronic kidney disease, stage 4 (severe) Plan: SERJIO on CKD followed by Dr. Choudhary outpatient. Worsening renal indices from GI bleed and poor renal profusion. Patient has GFR of 18-19 in 2014, no new labs available since than. Has Chronic kidney disease, possibly due to Hypertensive or renovascular disease. May have an element of SERJIO. Approaching end stage. Renal US: . Echogenic kidneys which can be seen with medical renal disease, bilateral renal cysts, and Nonobstructing left renal calculus. Creatinine essential unchanged at 4.07 and GFR 10 yesterday Potassium has remained WNL Minimal lower extremity edema present Will continue to monitor carefully and monitor I+O, nonoliguric Avoid nephrotoxins. No urgent need for Dialysis. Dr. Yanes spoke to patient and Son on the phone yesterday He will discuss with the mother and let me know. Poor appetite reported. Will add megace (2) Anemia ICD Codes: D64.9 - Anemia, unspecified Status: Acute Plan: transfused 2 units of PRBC on admission S/P EGD on 03/20/17---> Large duodenal ulcer, bx pending. CT scan shows diverticulosis (3) Atrial fibrillation ICD Codes: I48.91 - Unspecified atrial fibrillation Plan: Rate controlled anticoagulation on hold with recent GI bleed (Yudith Tavarez) Problem List: (1) CKD (chronic kidney disease) stage 4, GFR 15-29 ml/min ICD Codes: N18.4 - Chronic kidney disease, stage 4 (severe) Plan: SERJIO on CKD followed by Dr. Choudhary outpatient. Worsening renal indices from GI bleed and poor renal profusion. Patient has GFR of 18-19 in 2014, no new labs available since than. Has Chronic kidney disease, possibly due to Hypertensive or renovascular disease. May have an element of SERJIO. Approaching end stage. Renal US: . Echogenic kidneys which can be seen with medical renal disease, bilateral renal cysts, and Nonobstructing left renal calculus. Creatinine essential unchanged at 4.07 and GFR 10 yesterday Potassium has remained WNL Minimal lower extremity edema present Will continue to monitor carefully and monitor I+O, nonoliguric Avoid nephrotoxins. No urgent need for Dialysis. I discuss with te patient and called Son , both are refusing Dialysis. I told them the possible side effects, including life threatening, they seem to understand. (2) Anemia ICD Codes: D64.9 - Anemia, unspecified Status: Acute Plan: transfused 2 units of PRBC on admission S/P EGD on 03/20/17---> Large duodenal ulcer, bx pending. CT scan shows diverticulosis (3) Atrial fibrillation ICD Codes: I48.91 - Unspecified atrial fibrillation Plan: Rate controlled anticoagulation on hold with recent GI bleed (Chaz Yanes MD) Problem Qualifiers (1) Anemia: Qualified Codes: D50.0 - Iron deficiency anemia secondary to blood loss ( chronic) Yudith Tavarez Mar 26, 2017 08:51 Chaz Yanes MD Mar 26, 2017 16:24
[2017-03-26] MEDS: MEGESTROL ACETATE 40 MG TAB PO SCH (09:00)
[2017-03-26] MEDS: PANTOPRAZOLE SOD 40 MG DELAYED RELEASE TAB PO SCH ×2 (11:00→21:13)
[2017-03-26] MEDS: MAGNESIUM OXIDE 400 MG TAB PO SCH (11:00)
[2017-03-26] MEDS: FERROUS SULFATE 325 MG (65 MG ELEMENTAL IRON) TAB PO SCH ×3 (11:00→18:21)
[2017-03-26] MEDS: DILTIAZEM-CD 240 MG CAP ER PO SCH (11:00)
[2017-03-26] MEDS: amLODIPine BESYLATE 5 MG TAB PO SCH (11:00)
[2017-03-26] MEDS: PARICALCITOL 1 MCG CAP PO SCH (11:01)
[2017-03-26] MEDS: IRON SUCROSE INJ 100 MG in SODIUM CHLORIDE 0.9% INJ 100 ML IV SCH (11:01)
[2017-03-26] MEDS: SODIUM CHLORIDE 0.9% FLUSH 10 ML FLUSH IV FLUSH SCH ×2 (11:01→21:14)
--- NOTE | 2017-03-26 17:55 | HHI.PR ---
Subjective Remarks Denies melena or hematochezia. Denies cp/sob. Objective Vitals Vital Signs Date Time Temp Pulse Resp B/P (MAP) Pulse Ox O2 Delivery O2 Flow Rate FiO2 03/26/17 12:00 96.1 73 20 118/62 (80) 97 03/26/17 08:00 97.5 96 19 123/60 (81) 96 03/26/17 04:30 89 03/26/17 04:20 96.9 91 18 115/77 (90) 95 03/26/17 00:15 93 03/25/17 23:30 97.5 84 20 107/75 (86) 95 03/25/17 21:40 96.7 92 20 114/70 (85) 95 03/25/17 20:00 75 03/25/17 20:00 95 Nasal Cannula 2.00 I/O 03/25/17 03/25/17 03/25/17 03/26/17 03/26/17 03/26/17 07:00 15:00 23:00 07:00 15:00 23:00 Intake Total 240 ml 105 ml 1200 ml 240 ml Balance 240 ml 105 ml 1200 ml 240 ml Intake Oral 240 ml 1200 ml 240 ml IV Total 105 ml # Voids 2 7 3 # Bowel Movements 0 1 0 Result Diagram: 03/22/17 0343 03/25/17 0539 Objective Remarks GENERAL: Alert, NAD. SKIN: Warm and dry. HEAD: Normocephalic. EYES: No scleral icterus. No injection or drainage. NECK: Supple, trachea midline. No JVD or lymphadenopathy. CARDIOVASCULAR: Regular rate and rhythm without murmurs, gallops, or rubs. RESPIRATORY: Breath sounds equal bilaterally. No accessory muscle use. GASTROINTESTINAL: Abdomen soft, non-tender, nondistended. MUSCULOSKELETAL: No cyanosis, or edema. BACK: Nontender without obvious deformity. No CVA tenderness. Procedures EGD The esophagus this appeared to be unremarkable and within normal limits The stomach this too appeared to be unremarkable and within normal limits The duodenum there was a large duodenal sweep ulcer clean-based but there was one area of suspected visible vessel this was cauterized and no bleeding occurred the edges were slightly raised and edematous those were biopsied the rest of the duodenum was unremarkable Medications and IVs Current Medications Medications (Trade) Dose Ordered Sig/Mir Route Start Time Stop Time Status Last Admin (NS Flush) 2 ml UNSCH PRN IV FLUSH 03/19/17 22:00 (NS Flush) 2 ml BID IV FLUSH 03/20/17 09:00 03/26/17 21:14 (Narcan Inj) 0.4 mg UNSCH PRN IV PUSH 03/19/17 22:00 (Cardizem Cd) 240 mg DAILY PO 03/20/17 09:00 03/26/17 11:00 (Ferrous Sulfate) 325 mg TIDPC PO 03/20/17 09:30 03/26/17 18:21 (Synthroid) 112 mcg DAILY@0700 PO 03/20/17 07:00 03/27/17 06:06 (Zemplar) 1 mcg DAILY PO 03/20/17 09:00 03/26/17 11:01 (Mag-Ox) 400 mg DAILY PO 03/20/17 09:00 03/26/17 11:00 (Protonix) 40 mg Q12HR PO 03/21/17 21:00 03/26/17 21:13 (Norvasc) 2.5 mg DAILY PO 03/22/17 09:00 03/26/17 11:00 (Pill Splitter) 1 ea UNSCH PRN OTHER 03/21/17 16:00 (Megace) 40 mg DAILY PO 03/26/17 09:00 Urinary Catheter: No Vascular Central Line Catheter: No A/P Problem List: (1) Atrial fibrillation ICD Code: I48.91 - Unspecified atrial fibrillation (2) Anemia due to blood loss ICD Code: D50.0 - Iron deficiency anemia secondary to blood loss (chronic) (3) CKD (chronic kidney disease) stage 4, GFR 15-29 ml/min ICD Code: N18.4 - Chronic kidney disease, stage 4 (severe) Assessment and Plan Ms. Batres is an 86-year-old female with a history of atrial fibrillation who was admitted to the hospital due to hemoglobin 6.8. She was sent from [facility]. She underwent EGD with cauterization of one blood vessel. Patient is currently doing well. No fever chills or any bleeding. Hemoglobin is holding up. She received 2 units of blood during this admission. - Anemia due to acute GI blood loss - Status post EGD - Continue Protonix 40 mg by mouth twice a day - We'll continue to provide supportive care - H&H stable. Hgb 10.1 - Acute kidney injury - Creatinine 4.29 --> 3.79 --> 4.08 --> 4.13 --> 4.07 - CKD Stage IV - Renal US shows medical renal disease. Nephrology on board. - If no improvement noticed, patient may need to start dialysis. - Discussed with Nephrology. Dr. Yanes has discussed with patient's son will discuss with patient regarding dialysis. - Patient likely will need outpatient dialysis arrangement. Her regular delimber operator is Dr. Brett Choudhary. - As per nephrology documentation - Dr Yanes spoke to the patient's son on the phone yesterday, he will discuss with mother and let nephrology know. - Atrial fibrillation - Hypothyroidism - Hypertension - Continue home medications diltiazem 240 mg daily, levothyroxine 112 g by mouth daily. - Will discontinue patient's home medication hydralazine 50 g daily at bedtime. - Currently patient is normotensive or slightly hypotensive. - We'll continue amlodipine 2.5 mg daily with holding parameters. - In light of GI bleeding risk, we will hold off anti-coagulation. - However, [id number] score is at least 4. GI recommended no anti- coagulation for 1-2 weeks. EGD was done on 03/20/2017. - After 2 weeks, she should discuss with her physicians regarding anti- coagulation for Afib stroke risk reduction. - She has CKD stage IV. Apixaban 2.5mg BID would be appropriate for Afib anti -coagulation. DNR. SCDs. We are not using Lovenox/Heparin for DVT prophylaxis due to concern over GI bleed. Discharge Planning Dc pending nephrology clearance. Wang Mayers MD Mar 26, 2017 17:55
[2017-03-26 22:03] LABS: HEMATOCRIT 30.2 % (35.0-46.0); HEMOGLOBIN 10.1 GM/DL (11.6-15.3); MEAN CELL VOLUME 92.7 FL (80.0-100.0); MEAN CORPUSCULAR HEMOGLOBIN 31.1 PG (27.0-34.0); MEAN CORPUSCULAR HGB CONC 33.5 % (32.0-36.0); MEAN PLATELET VOLUME 8.2 FL (7.0-11.0); PLATELET COUNT 361 TH/MM3 (150-450); RED BLOOD COUNT 3.25 MIL/MM3 (4.00-5.30); RED CELL DISTRIBUTION WIDTH 16.3 % (11.6-17.2); WHITE BLOOD COUNT 9.1 TH/MM3 (4.0-11.0)
[2017-03-27] VITALS (9 sets, daily range): BP systolic 100–134; BP diastolic 61–74; PULSE 66–105; RESP 16–18; TEMP 96.5–98; O2SAT 94–96
[2017-03-27 05:10] LABS: HEMATOCRIT 30.9 % (35.0-46.0); HEMOGLOBIN 9.9 GM/DL (11.6-15.3); MEAN CELL VOLUME 93.4 FL (80.0-100.0); MEAN CORPUSCULAR HGB CONC 32.1 % (32.0-36.0); MEAN PLATELET VOLUME 8.1 FL (7.0-11.0); PLATELET COUNT 381 TH/MM3 (150-450); RED BLOOD COUNT 3.31 MIL/MM3 (4.00-5.30); RED CELL DISTRIBUTION WIDTH 16.4 % (11.6-17.2); WHITE BLOOD COUNT 8.2 TH/MM3 (4.0-11.0)
[2017-03-27 05:35] LABS: BICARBONATE 23.1 MEQ/L (21.0-32.0); CALCIUM 8.9 MG/DL (8.5-10.1); CREATININE 4.52 MG/DL (0.50-1.00)
[2017-03-27] MEDS: LEVOTHYROXINE SODIUM 112 MCG TAB PO SCH (06:06)
[2017-03-27] MEDS: PARICALCITOL 1 MCG CAP PO SCH (10:29)
[2017-03-27] MEDS: PANTOPRAZOLE SOD 40 MG DELAYED RELEASE TAB PO SCH ×2 (10:29→20:58)
[2017-03-27] MEDS: DILTIAZEM-CD 240 MG CAP ER PO SCH (10:29)
[2017-03-27] MEDS: FERROUS SULFATE 325 MG (65 MG ELEMENTAL IRON) TAB PO SCH ×3 (10:29→17:48)
[2017-03-27] MEDS: MAGNESIUM OXIDE 400 MG TAB PO SCH (10:30)
[2017-03-27] MEDS: SODIUM CHLORIDE 0.9% FLUSH 10 ML FLUSH IV FLUSH SCH ×2 (10:30→20:59)
[2017-03-27] MEDS: MEGESTROL ACETATE 40 MG TAB PO SCH (10:30)
[2017-03-27] MEDS: amLODIPine BESYLATE 5 MG TAB PO SCH (10:30)
--- NOTE | 2017-03-27 11:11 | HHI.NPPN ---
Subjective Complaints: Anorexia Renal Failure: Stage V History of Present Illness Patient is a 86-year-old female with history of CHF, A. fib, and chronic kidney disease presents to the emergency room for evaluation of low hemoglobin. She is currently in [facility] after having been admitted to [facility] for 2 weeks. HGB was found to be 6.8. She follows with the griddle cook, Dr. Choudhary. Per records states her renal function is around 18% at baseline and there are discussions of possibly starting dialysis. He states she has had no history of anemia. GFR today is at 10. Additional Remarks Patient is sleeping this morning. Reports that she could not sleep last night. Denies any SOB. Minimal edema. (Yudith Tavarez) Review of Systems Respiratory Respiratory Remarks Denies SOB (Yudith Tavarez) Cardiovascular Cardiac Remarks Denies CP (Yudith Tavarez) Gastrointestinal GI Remarks Denies abdominal pain. (Yudith Tavarez) Genitourinary Remarks No dysuria (Yudith Tavarez) Objective Data Data Vital Signs Date Time Temp Pulse Resp B/P (MAP) Pulse Ox O2 Delivery O2 Flow Rate FiO2 03/27/17 08:00 96.5 105 18 134/69 (90) 95 03/27/17 04:15 97.4 93 16 100/61 (74) 94 03/27/17 00:59 97.7 73 16 116/68 (84) 96 03/26/17 20:58 96.7 89 18 112/64 (80) 97 03/26/17 20:09 Nasal Cannula 2.00 03/26/17 20:09 77 03/26/17 12:00 96.1 73 20 118/62 (80) 97 (Yudith Tavarez) -: 03/27/17 0440 03/27/17 0440 Imaging Last Impressions Renal Ultrasound 03/22/17 0000 Signed Impressions: Service Date/Time: Wednesday, March 22, 2017 18:41 - CONCLUSION: 1. Echogenic kidneys which can be seen with medical renal disease. 2. Bilateral renal cysts. 3. Nonobstructing left renal calculus. Domingo Almaguer MD Abdomen/Pelvis CT 1/1939 Signed Impressions: Service Date/Time: March 20:12 - CONCLUSION: 1. No acute abnormality. 2. Mild stranding of the subcutaneous fat involving the left flank. This could relate to focal edema or cellulitis. No fluid collection. 3. Colonic diverticulosis. 4. Cardiomegaly with tiny bilateral pleural effusions and bibasilar atelectasis. Tae Vyas Jr., MD (Yudith Tavarez) Physical Exam General Appearance: No Acute Distress, Comfortable, Obese (Yudith Tavarez [employer]) Eyes Eye Exam: Pupils Equal (Yudith Tavarez [employer]) Pulmonary Resp Exam: Clear Bilaterally, No Distress (Yudith TavarezP) Cardiology CV Exam: Normal Sinus Rhythm (Yudith TavarezP) Gastrointestinal/Abdomen GI Exam: Soft, Non-Tender, Bowel Sounds Present (Yudith TavarezP) Genitourinary Exam: Flank Non-Tender (Yudith Tavarez) Integumentary Skin Exam: Clear, Warm (Yudith Tavarez) Extremeties Extremities Exam: Trace Edema Extremeties Remarks lower extremity (Yudith Tavarez) Psychiatric Psych Exam: Appropriate Responses (Yudith Tavarez) Assessment/Plan Assessment Summary: SERJIO/Acute Renal Failure, CKD Stage V Problem List: (1) CKD (chronic kidney disease) stage 4, GFR 15-29 ml/min ICD Codes: N18.4 - Chronic kidney disease, stage 4 (severe) Status: Chronic Plan: SERJIO on CKD followed by Dr. Choudhary outpatient. Worsening renal indices from GI bleed and poor renal profusion. Patient has GFR of 18-19 in 2014, no new labs available since than. Has Chronic kidney disease, possibly due to Hypertensive or renovascular disease. May have an element of SERJIO. Approaching end stage. Renal US: . Echogenic kidneys which can be seen with medical renal disease, bilateral renal cysts, and Nonobstructing left renal calculus. Creatinine 4.52 and GFR 9 WT stable Potassium has remained WNL Minimal lower extremity edema present Will continue to monitor carefully and monitor I+O, nonoliguric Avoid nephrotoxins. No urgent need for Dialysis. Dr. Yanes has discussed with patient and called Son , both are refusing Dialysis. They were told the possible side effects, including life threatening, they seem to understand. (2) Anemia ICD Codes: D64.9 - Anemia, unspecified Status: Acute Plan: HGB 9.9 transfused 2 units of PRBC on admission S/P EGD on 03/20/17---> Large duodenal ulcer, bx pending. CT scan shows diverticulosis Venofer X 1 for iron deficiencey anemia on the Epogen X1 given on the 22ng (3) Atrial fibrillation ICD Codes: I48.91 - Unspecified atrial fibrillation Status: Chronic Plan: Rate controlled anticoagulation on hold with recent GI bleed (Yudith Tavarez) Problem List: (1) CKD (chronic kidney disease) stage 4, GFR 15-29 ml/min ICD Codes: N18.4 - Chronic kidney disease, stage 4 (severe) Status: Chronic Plan: SERJIO on CKD followed by Dr. Choudhary outpatient. Worsening renal indices from GI bleed and poor renal profusion. Patient has GFR of 18-19 in 2014, no new labs available since than. Has Chronic kidney disease, possibly due to Hypertensive or renovascular disease. May have an element of SERJIO. Approaching end stage. Renal US: . Echogenic kidneys which can be seen with medical renal disease, bilateral renal cysts, and Nonobstructing left renal calculus. Creatinine 4.52 and GFR 9 WT stable Potassium has remained WNL Minimal lower extremity edema present Will continue to monitor carefully and monitor I+O, nonoliguric Avoid nephrotoxins. No urgent need for Dialysis. Dr. Yanes has discussed with patient and called Son , both are refusing Dialysis. They were told the possible side effects, including life threatening, they seem to understand. Patient seen and examined, labs noted. For D/C to SNF, Son and the patient refused Dialysis. Follow up with Dr. Choudhary. (2) Anemia ICD Codes: D64.9 - Anemia, unspecified Status: Acute Plan: HGB 9.9 transfused 2 units of PRBC on admission S/P EGD on 03/20/17---> Large duodenal ulcer, bx pending. CT scan shows diverticulosis Venofer X 1 for iron deficiencey anemia on the Epogen X1 given on the 22ng (3) Atrial fibrillation ICD Codes: I48.91 - Unspecified atrial fibrillation Status: Chronic Plan: Rate controlled anticoagulation on hold with recent GI bleed (Chaz Yanes MD) Problem Qualifiers (1) Anemia: Qualified Codes: D50.0 - Iron deficiency anemia secondary to blood loss ( chronic) (2) Atrial fibrillation: Qualified Codes: I48.91 - Unspecified atrial fibrillation Yudith Tavarez Mar 27, 2017 11:11 Chaz Yanes MD Mar 27, 2017 15:46
--- NOTE | 2017-03-27 14:24 | HHI.DCPOC ---
Discharge Care Plan Diagnosis: (1) Hypothyroidism (2) Anemia due to blood loss (3) CKD (chronic kidney disease) stage 4, GFR 15-29 ml/min (4) Atrial fibrillation (5) GI bleed (6) Anemia (7) Hypertension Goals to Promote Your Health * To prevent worsening of your condition and complications * To maintain your health at the optimal level Directions to Meet Your Goals Take your medications as prescribed Follow your dietary instruction Follow activity as directed Keep your appointments as scheduled Take your immunizations and boosters as scheduled If your symptoms worsen call your PCP, if no PCP go to Urgent Care Center or Emergency Room Smoking is Dangerous to Your Health. Avoid second hand smoke Call the 24-hour hour crisis hotline for domestic abuse at Wang Mayers MD Mar 27, 2017 14:24
--- NOTE | 2017-03-27 14:36 | HHI.DS ---
Discharge Summary Admission Date Mar 19, 2017 at 22:03 Discharge Date: Mar 30, 2017 Admitting Diagnosis anemia, GI bleed (1) Atrial fibrillation ICD Code: I48.91 - Unspecified atrial fibrillation Diagnosis: Principal Status: Chronic (2) Anemia due to blood loss ICD Code: D50.0 - Iron deficiency anemia secondary to blood loss (chronic) Diagnosis: Principal Status: Resolved (3) CKD (chronic kidney disease) stage 4, GFR 15-29 ml/min ICD Code: N18.4 - Chronic kidney disease, stage 4 (severe) Diagnosis: Principal Status: Chronic (4) Hypothyroidism ICD Code: E03.9 - Hypothyroidism, unspecified Diagnosis: Secondary Status: Chronic (5) Hypertension ICD Code: I10 - Hypertension Diagnosis: Secondary Status: Chronic Procedures EGD The esophagus this appeared to be unremarkable and within normal limits The stomach this too appeared to be unremarkable and within normal limits The duodenum there was a large duodenal sweep ulcer clean-based but there was one area of suspected visible vessel this was cauterized and no bleeding occurred the edges were slightly raised and edematous those were biopsied the rest of the duodenum was unremarkable Brief History - From Admission History from patient, ER physician communication, and review of medical records. Patient is quite sleepy during my examination. Both nursing staff and the notes from [facility] also stated that patient at times is oriented only to herself and not a great historian. On specific questioning though, patient reports of abdominal pain. She denies nausea/vomiting/diarrhea. She denies seeing any blood in her stool. She does note that she was admitted recently to hospital. Per halfway transfer notes, patient was sent to ER for abnormal blood work showing low hemoglobin of 6.8. In the emergency room, guaiac was done by ER DAVID which showed bright red blood. CBC/BMP: 03/27/17 0440 03/27/17 0440 Significant Findings Laboratory Tests Test 03/25/17 05:39 03/26/17 20:30 03/27/17 04:40 Blood Urea Nitrogen 44 MG/DL (7-18) 46 MG/DL (7-18) Creatinine 4.07 MG/DL (0.50-1.00) 4.52 MG/DL (0.50-1.00) Chloride Level 112 MEQ/L (98-107) 112 MEQ/L (98-107) Estimat Glomerular Filtration Rate 10 ML/MIN (>89) 9 ML/MIN (>89) Red Blood Count 3.25 MIL/MM3 (4.00-5.30) 3.31 MIL/MM3 (4.00-5.30) Hemoglobin 10.1 GM/DL (11.6-15.3) 9.9 GM/DL (11.6-15.3) Hematocrit 30.2 % (35.0-46.0) 30.9 % (35.0-46.0) Imaging Last Impressions Renal Ultrasound 03/22/17 0000 Signed Impressions: Service Date/Time: Wednesday, March 22, 2017 18:41 - CONCLUSION: 1. Echogenic kidneys which can be seen with medical renal disease. 2. Bilateral renal cysts. 3. Nonobstructing left renal calculus. Domingo Almaguer MD Abdomen/Pelvis CT 03/19/17 194 Signed Impressions: Service Date/Time: March 20:12 - CONCLUSION: 1. No acute abnormality. 2. Mild stranding of the subcutaneous fat involving the left flank. This could relate to focal edema or cellulitis. No fluid collection. 3. Colonic diverticulosis. 4. Cardiomegaly with tiny bilateral pleural effusions and bibasilar atelectasis. Tae Vyas Jr., MD PE at Discharge GENERAL: Alert, NAD. SKIN: Warm and dry. HEAD: Normocephalic. EYES: No scleral icterus. No injection or drainage. NECK: Supple, trachea midline. No JVD or lymphadenopathy. CARDIOVASCULAR: Regular rate and rhythm without murmurs, gallops, or rubs. RESPIRATORY: Breath sounds equal bilaterally. No accessory muscle use. GASTROINTESTINAL: Abdomen soft, non-tender, nondistended. MUSCULOSKELETAL: No cyanosis, or edema. BACK: Nontender without obvious deformity. No CVA tenderness. Pt Condition on Discharge: Good Discharge Disposition: Disch w/ Home Health Serv Discharge Time: > 30 minutes Discharge Instructions DIET: Follow Instructions for: As Tolerated, No Restrictions Activities you can perform: Regular-No Restrictions Activities to Avoid: Prolonged Standing, Strenuous Activity Other Activity Instructions: Out of bed with assistance Follow up Referrals: Nephrology - 2 Weeks with Chaz Yanes MD PCP Follow-up - 1 Week New Medications: Pantoprazole (Pantoprazole) 40 Mg Tab 40 MG PO Q12HR for GI, #60 TAB Continued Medications: Acetaminophen (Tylenol) 325 Mg Tab 650 MG PO Q6H PRN for pain, TAB 0 Refills Diltiazem ER 24 HR (Diltiazem ER 24 HR) 240 Mg Caper 240 MG PO DAILY, #30 CAP 0 Refills Febuxostat (Uloric) 80 Mg Tab Ferrous Sulfate (Ferrous Sulfate) 325 Mg (65 Mg Iron) Tablet 325 MG PO TIDPC for Nutritional Supplement, #90 TAB 0 Refills Hydralazine HCl (Hydralazine HCl) 25 Mg Tablet 50 MG PO HS for Blood Pressure Management, #60 TAB 0 Refills Levothyroxine (Levothyroxine) 112 Mcg Tab 112 MCG PO DAILY for Thyroid, #30 TAB 0 Refills Magnesium Oxide (Magnesium Oxide) 500 Mg Tab 500 MG PO DAILY, TAB 0 Refills Paricalcitol (Zemplar) 1 Mcg Cap 1 MCG PO DAILY for Secondary hyperparathyroidism, #30 CAP 0 Refills Discontinued Medications: Aspirin DR (Aspirin EC) 325 Mg Tabdr 325 MG PO DAILY, TAB 0 Refills Wang Mayers MD Mar 27, 2017 14:36
--- NOTE | 2017-03-27 14:47 | HHI.FF ---
Face to Face Verification Diagnosis: (1) GI bleed (2) CKD (chronic kidney disease), stage III (3) Atrial fibrillation (4) Hypothyroidism (5) Hypertension (6) Anemia due to blood loss Physical Therapy Order: Improve ambulation, Strength and gait training Home Health Nursing Order: Nursing assessment with vital signs I have seen patient Leonor Batres on 03/27/17. My clinical findings support the need for the requested home health care services because: Limited ability to care for self Need for psychosocial assistance High risk of falls I certify that my clinical findings support that this patient is homebound because: Unsteady gait/balance Unsafe to leave home unassisted Need for psychosocial assistance Unable to use public transportation Wang Mayers MD Mar 27, 2017 14:47
--- NOTE | 2017-03-27 19:29 | HHI.PR ---
Subjective Remarks Deferred entry, the patient was seen earlier at 1400 hrs. The patient denies chest pain or shortness of breath. Patient is afebrile. Pain controlled Objective Vitals Vital Signs Date Time Temp Pulse Resp B/P (MAP) Pulse Ox O2 Delivery O2 Flow Rate FiO2 03/27/17 15:22 90 03/27/17 12:00 97.0 96 18 115/74 (88) 94 03/27/17 08:00 96.5 105 18 134/69 (90) 95 03/27/17 08:00 Nasal Cannula 2.00 03/27/17 07:43 88 03/27/17 04:15 97.4 93 16 100/61 (74) 94 03/27/17 00:59 97.7 73 16 116/68 (84) 96 03/26/17 20:58 96.7 89 18 112/64 (80) 97 03/26/17 20:09 Nasal Cannula 2.00 03/26/17 20:09 77 I/O 03/26/17 03/26/17 03/26/17 03/27/17 03/27/17 03/27/17 07:00 15:00 23:00 07:00 15:00 23:00 Intake Total 240 ml 120 ml 600 ml Balance 240 ml 120 ml 600 ml Intake Oral 240 ml 120 ml 600 ml # Voids 3 2 3 # Bowel Movements 0 0 Result Diagram: 03/27/1743903/27/17 0440 Objective Remarks GENERAL: Alert, NAD. SKIN: Warm and dry. HEAD: Normocephalic. EYES: No scleral icterus. No injection or drainage. NECK: Supple, trachea midline. No JVD or lymphadenopathy. CARDIOVASCULAR: Regular rate and rhythm without murmurs, gallops, or rubs. RESPIRATORY: Breath sounds equal bilaterally. No accessory muscle use. GASTROINTESTINAL: Abdomen soft, non-tender, nondistended. MUSCULOSKELETAL: No cyanosis, or edema. BACK: Nontender without obvious deformity. No CVA tenderness. Procedures EGD The esophagus this appeared to be unremarkable and within normal limits The stomach this too appeared to be unremarkable and within normal limits The duodenum there was a large duodenal sweep ulcer clean-based but there was one area of suspected visible vessel this was cauterized and no bleeding occurred the edges were slightly raised and edematous those were biopsied the rest of the duodenum was unremarkable A/P Problem List: (1) Atrial fibrillation ICD Code: I48.91 - Unspecified atrial fibrillation Status: Chronic (2) Anemia due to blood loss ICD Code: D50.0 - Iron deficiency anemia secondary to blood loss (chronic) Status: Resolved (3) CKD (chronic kidney disease) stage 4, GFR 15-29 ml/min ICD Code: N18.4 - Chronic kidney disease, stage 4 (severe) Status: Chronic (4) Hypothyroidism ICD Code: E03.9 - Hypothyroidism, unspecified Status: Chronic (5) Hypertension ICD Code: I10 - Hypertension Status: Chronic Assessment and Plan Ms. Batres is an 86-year-old female with a history of atrial fibrillation who was admitted to the hospital due to hemoglobin 6.8. She was sent from [facility]. She underwent EGD with cauterization of one blood vessel. Patient is currently doing well. No fever chills or any bleeding. Hemoglobin is holding up. She received 2 units of blood during this admission. - Anemia due to acute GI blood loss - Status post EGD - Continue Protonix 40 mg by mouth twice a day - We'll continue to provide supportive care - H&H stable. Hgb 10.1 - Acute kidney injury - Creatinine 4.29 --> 3.79 --> 4.08 --> 4.13 --> 4.07 - CKD Stage IV - Renal US shows medical renal disease. Nephrology on board. - If no improvement noticed, patient may need to start dialysis. - Discussed with Nephrology. Dr. Yanes has discussed with patient's son will discuss with patient regarding dialysis. - Patient likely will need outpatient dialysis arrangement. Her regular director of medical review is Dr. Brett Choudhary. - As per nephrology documentation - Dr Yanes spoke to the patient's son on the phone yesterday, he will discuss with mother and let nephrology know. - 03/27 As per rotator cuff mentation, the patient and the family is refusing dialysis. - Atrial fibrillation - Hypothyroidism - Hypertension - Continue home medications diltiazem 240 mg daily, levothyroxine 112 g by mouth daily. - Will discontinue patient's home medication hydralazine 50 g daily at bedtime. - Currently patient is normotensive or slightly hypotensive. - We'll continue amlodipine 2.5 mg daily with holding parameters. - In light of GI bleeding risk, we will hold off anti-coagulation. - However, [id number] score is at least 4. GI recommended no anti- coagulation for 1-2 weeks. EGD was done on 03/20/2017. - After 2 weeks, she should discuss with her physicians regarding anti- coagulation for Afib stroke risk reduction. - She has CKD stage IV. Apixaban 2.5mg BID would be appropriate for Afib anti -coagulation. DNR. SCDs. We are not using Lovenox/Heparin for DVT prophylaxis due to concern over GI bleed. The patient was discharged as the patient and family are refusing dialysis. Initially the discharge order was placed, however received a phone call from field case manager stating that the patient's son communicated with her by phone stating that there is no one to take care of the patient at home. However, field case manager states that there is family coming into the state tomorrow, I be able to go home and take care of the patient when discharge. The patient was offered to be discharged to a SNF, however she refused. I will consult psychiatry to determine capacity of the patient to make medical decisions. Discharge Planning Not a safe discharge to home since patient lives alone and has no one to care for her. Patient refusing to go to SNF. Psychiatry consulted. Problem Qualifiers (1) Atrial fibrillation: Qualified Codes: I48.91 - Unspecified atrial fibrillation (2) Hypothyroidism: Qualified Codes: E03.9 - Hypothyroidism, unspecified Wang Mayers MD Mar 27, 2017 19:28
[2017-03-28] VITALS (8 sets, daily range): BP systolic 104–135; BP diastolic 54–75; PULSE 66–104; RESP 17–20; TEMP 95.5–97.8; O2SAT 92–97
[2017-03-28] MEDS: LEVOTHYROXINE SODIUM 112 MCG TAB PO SCH (06:07)
[2017-03-28] MEDS: amLODIPine BESYLATE 5 MG TAB PO SCH (08:22)
[2017-03-28] MEDS: PARICALCITOL 1 MCG CAP PO SCH (08:26)
[2017-03-28] MEDS: FERROUS SULFATE 325 MG (65 MG ELEMENTAL IRON) TAB PO SCH ×3 (08:26→18:11)
[2017-03-28] MEDS: PANTOPRAZOLE SOD 40 MG DELAYED RELEASE TAB PO SCH ×2 (08:26→21:53)
[2017-03-28] MEDS: MAGNESIUM OXIDE 400 MG TAB PO SCH (08:26)
[2017-03-28] MEDS: DILTIAZEM-CD 240 MG CAP ER PO SCH (08:26)
[2017-03-28] MEDS: MEGESTROL ACETATE 40 MG TAB PO SCH (08:26)
[2017-03-28] MEDS: SODIUM CHLORIDE 0.9% FLUSH 10 ML FLUSH IV FLUSH SCH ×2 (08:27→21:53)
--- NOTE | 2017-03-28 09:13 | HHI.NPPN ---
Subjective Complaints: Anorexia Renal Failure: Stage V History of Present Illness Patient is a 86-year-old female with history of CHF, A. fib, and chronic kidney disease presents to the emergency room for evaluation of low hemoglobin. . HGB was found to be 6.8. She follows with the supervisor core drilling, Dr. Choudhary. Per records states her renal function is around 18% at baseline and there were discussions of possibly starting dialysis. . Additional Remarks No labs today. Renal function had worsened as of yesterday. Review of Systems General Constitutional: Fatigue Respiratory Respiratory Remarks Denies SOB Cardiovascular Cardiac Remarks Denies CP Gastrointestinal GI Remarks Denies abdominal pain. Genitourinary Remarks No dysuria Objective Data Data Vital Signs Date Time Temp Pulse Resp B/P (MAP) Pulse Ox O2 Delivery O2 Flow Rate FiO2 03/28/17 08:34 Room Air 03/28/17 08:00 95.5 84 17 111/69 (83) 92 03/28/17 04:00 97.8 66 18 121/64 (83) 92 03/28/17 00:00 97.8 68 20 116/69 (85) 94 03/27/17 20:00 97.3 85 18 109/65 (80) 94 03/27/17 19:30 66 03/27/17 15:22 90 03/27/17 12:00 97.0 96 18 115/74 (88) 94 -: 03/27/17 0440 03/27/17 0440 Physical Exam General Appearance: No Acute Distress, Comfortable, Obese Eyes Eye Exam: Pupils Equal Pulmonary Resp Exam: Clear Bilaterally, No Distress Cardiology CV Exam: Normal Sinus Rhythm Gastrointestinal/Abdomen GI Exam: Soft, Non-Tender, Bowel Sounds Present Genitourinary Exam: Flank Non-Tender Integumentary Skin Exam: Clear, Warm Extremeties Extremities Exam: Trace Edema Psychiatric Psych Exam: Appropriate Responses Assessment/Plan Assessment Summary: SERJIO/Acute Renal Failure, CKD Stage V Problem List: (1) CKD (chronic kidney disease) stage 4, GFR 15-29 ml/min ICD Codes: N18.4 - Chronic kidney disease, stage 4 (severe) Status: Chronic Plan: SERJIO on CKD followed by Dr. Choudhary outpatient. Worsening renal indices from GI bleed and poor renal profusion. Patient has GFR of 18-19 in 2014, no new labs available since than. Has Chronic kidney disease, possibly due to Hypertensive or renovascular disease. May have an element of SERJIO. Approaching end stage. Renal US: . Echogenic kidneys which can be seen with medical renal disease, bilateral renal cysts, and Nonobstructing left renal calculus. Creatinine 4.52 and GFR 9 Patient and her son have refused to begin dialysis. They are aware of life threatening complications of progressive renal failure. (2) Anemia ICD Codes: D64.9 - Anemia, unspecified Status: Acute Plan: HGB 9.9 transfused 2 units of PRBC on admission S/P EGD on 03/20/17---> Large duodenal ulcer, bx pending. CT scan shows diverticulosis Venofer X 1 for iron deficiencey anemia on the Epogen X1 given on the (3) Atrial fibrillation ICD Codes: I48.91 - Unspecified atrial fibrillation Status: Chronic Plan: Rate controlled anticoagulation on hold with recent GI bleed Problem Qualifiers (1) Anemia: Qualified Codes: D50.0 - Iron deficiency anemia secondary to blood loss ( chronic) (2) Atrial fibrillation: Qualified Codes: I48.91 - Unspecified atrial fibrillation Pavel Vidal MD Mar 28, 2017 09:13
--- NOTE | 2017-03-28 13:57 | HHI.PR ---
Subjective Remarks family at bedside. Denies cp/sob. Patient states wants to go home. Objective Vitals Vital Signs Date Time Temp Pulse Resp B/P (MAP) Pulse Ox O2 Delivery O2 Flow Rate FiO2 03/28/17 11:55 96.2 98 18 120/57 (78) 93 03/28/17 08:34 Room Air 03/28/17 08:00 95.5 84 17 111/69 (83) 92 03/28/17 04:00 97.8 66 18 121/64 (83) 92 03/28/17 00:00 97.8 68 20 116/69 (85) 94 03/27/17 20:00 97.3 85 18 109/65 (80) 94 03/27/17 19:30 66 03/27/17 15:22 90 I/O 03/27/17 03/27/17 03/27/17 03/28/17 03/28/17 03/28/17 07:00 15:00 23:00 07:00 15:00 23:00 Intake Total 840 ml 240 ml Balance 840 ml 240 ml Intake Oral 840 ml 240 ml # Voids 4 1 # Bowel Movements 0 0 Result Diagram: 03/27/17 0440 03/27/17 0440 Imaging Last Impressions Renal Ultrasound 03/22/17 0000 Signed Impressions: Service Date/Time: Wednesday, March 22, 2017 18:41 - CONCLUSION: 1. Echogenic kidneys which can be seen with medical renal disease. 2. Bilateral renal cysts. 3. Nonobstructing left renal calculus. Domingo Almaguer MD Abdomen/Pelvis CT 03/19/171941 Signed Impressions: Service Date/Time: March 20:12 - CONCLUSION: 1. No acute abnormality. 2. Mild stranding of the subcutaneous fat involving the left flank. This could relate to focal edema or cellulitis. No fluid collection. 3. Colonic diverticulosis. 4. Cardiomegaly with tiny bilateral pleural effusions and bibasilar atelectasis. Tae Vyas Jr., MD Objective Remarks GENERAL: Alert, NAD. SKIN: Warm and dry. HEAD: Normocephalic. EYES: No scleral icterus. No injection or drainage. NECK: Supple, trachea midline. No JVD or lymphadenopathy. CARDIOVASCULAR: Regular rate and rhythm without murmurs, gallops, or rubs. RESPIRATORY: Breath sounds equal bilaterally. No accessory muscle use. GASTROINTESTINAL: Abdomen soft, non-tender, nondistended. MUSCULOSKELETAL: No cyanosis, or edema. BACK: Nontender without obvious deformity. No CVA tenderness. Procedures EGD The esophagus this appeared to be unremarkable and within normal limits The stomach this too appeared to be unremarkable and within normal limits The duodenum there was a large duodenal sweep ulcer clean-based but there was one area of suspected visible vessel this was cauterized and no bleeding occurred the edges were slightly raised and edematous those were biopsied the rest of the duodenum was unremarkable Medications and IVs Current Medications Medications (Trade) Dose Ordered Sig/Mir Route Start Time Stop Time Status Last Admin (NS Flush) 2 ml UNSCH PRN IV FLUSH 03/19/17 22:00 (NS Flush) 2 ml BID IV FLUSH 03/20/17 09:00 03/28/17 08:27 (Narcan Inj) 0.4 mg UNSCH PRN IV PUSH 03/19/17 22:00 (Cardizem Cd) 240 mg DAILY PO 03/20/17 09:00 03/28/17 08:26 (Ferrous Sulfate) 325 mg TIDPC PO 03/20/17 09:30 03/28/17 08:26 (Synthroid) 112 mcg DAILY@0700 PO 03/20/17 07:00 03/28/17 06:07 (Zemplar) 1 mcg DAILY PO 03/20/17 09:00 03/28/17 08:26 (Mag-Ox) 400 mg DAILY PO 03/20/17 09:00 03/28/17 08:26 (Protonix) 40 mg Q12HR PO 03/21/17 21:00 03/28/17 08:26 (Norvasc) 2.5 mg DAILY PO 03/22/17 09:00 03/27/17 10:30 (Pill Splitter) 1 ea UNSCH PRN OTHER 03/21/17 16:00 (Megace) 40 mg DAILY PO 03/26/17 09:00 03/28/17 08:26 A/P Problem List: (1) Atrial fibrillation ICD Code: I48.91 - Unspecified atrial fibrillation Status: Chronic (2) Anemia due to blood loss ICD Code: D50.0 - Iron deficiency anemia secondary to blood loss (chronic) Status: Resolved (3) CKD (chronic kidney disease) stage 4, GFR 15-29 ml/min ICD Code: N18.4 - Chronic kidney disease, stage 4 (severe) Status: Chronic (4) Hypothyroidism ICD Code: E03.9 - Hypothyroidism, unspecified Status: Chronic (5) Hypertension ICD Code: I10 - Hypertension Status: Chronic Assessment and Plan Ms. Batres is an 86-year-old female with a history of atrial fibrillation who was admitted to the hospital due to hemoglobin 6.8. She was sent from [facility]. She underwent EGD with cauterization of one blood vessel. Patient is currently doing well. No fever chills or any bleeding. Hemoglobin is holding up. She received 2 units of blood during this admission. - Anemia due to acute GI blood loss - Status post EGD - Continue Protonix 40 mg by mouth twice a day - We'll continue to provide supportive care - H&H stable. Hgb 10.1 - Acute kidney injury - Creatinine 4.29 --> 3.79 --> 4.08 --> 4.13 --> 4.07 - CKD Stage IV - Renal US shows medical renal disease. Nephrology on board. - If no improvement noticed, patient may need to start dialysis. - Discussed with Nephrology. Dr. Yanes has discussed with patient's son will discuss with patient regarding dialysis. - Patient likely will need outpatient dialysis arrangement. Her regular psychologist educational is Dr. Brett Choudhary. - As per nephrology documentation - Dr Yanes spoke to the patient's son on the phone yesterday, he will discuss with mother and let nephrology know. - 03/27 Patient is refusing dialysis. Psychiatry consulted. Explained to patient regarding her kidney issue and what the treatment alternatives were. These included treated with dialysis whether hemodialysis or peritoneal, no treatment. Excellent to the patient that electing not to treat currently to . The patient was able to answer my questions and seemed to understand the consequences of her decisions. Power of warping mill operator at bedside with the rest of family. Power of warping mill operator and patient continued to refuse dialysis. Hospice consulted. Discussed the case with hospice and the patient will be able to go to home when hospital bed and other equipment are set up at home. - Atrial fibrillation - Hypothyroidism - Hypertension - Continue home medications diltiazem 240 mg daily, levothyroxine 112 g by mouth daily. - Will discontinue patient's home medication hydralazine 50 g daily at bedtime. - Currently patient is normotensive or slightly hypotensive. - We'll continue amlodipine 2.5 mg daily with holding parameters. - In light of GI bleeding risk, we will hold off anti-coagulation. - However, [id number] score is at least 4. GI recommended no anti- coagulation for 1-2 weeks. EGD was done on 03/20/2017. - After 2 weeks, she should discuss with her physicians regarding anti- coagulation for Afib stroke risk reduction. - She has CKD stage IV. Apixaban 2.5mg BID would be appropriate for Afib anti -coagulation. DNR. SCDs. We are not using Lovenox/Heparin for DVT prophylaxis due to concern over GI bleed. Discharge Planning Patient will be discharged home on hospice on Thursday after arrangements made. Problem Qualifiers (1) Atrial fibrillation: Qualified Codes: I48.91 - Unspecified atrial fibrillation (2) Hypothyroidism: Qualified Codes: E03.9 - Hypothyroidism, unspecified Wang Mayers MD Mar 28, 2017 13:57
[2017-03-28] MEDS ORDERED: DILTIAZEM-CD 120 MG CAP ER PO ONE (15:00)
--- NOTE | 2017-03-28 16:01 | PD.PSY.CON ---
Provisional Diagnosis Admission Date Mar 19, 2017 at 22:03 Jew[place] I. Mild cognitive disorder History of Present Illness Service Psychiatry Consult Requested By Attending Marlena Reason for Consult Assessment Primary Care Physician Unknown HPI Patient is an 86-year-old white female asked to see to assess for capacity. Patient end-stage renal disease has had various medical issues that are being treated. Patient now has decided she does not wish to go through dialysis. She wishes to be placed in a palliative type care at home with caregivers. I have also discussed this with the patient's son Vinay at [phone]. While he is upset by his mother's decision he feels she has the right to make this. The family has been involved. They have decided that she is to return to her own home with 24 7 care in the home. I discussed this with the patient patient is aware of the sequelae of her decision not to have dialysis. That could significantly affect her life span. She is aware of this and still wishes to go home. Patient denies any prior psychiatric contact hospitalization to psychotropic medications. She is overall fairly well oriented I see just very minimal mild cognitive issues with orientation but not to the level where it affects her ability to make decisions. Thus at this time I feel patient does have capacity to make decisions concerning care motion versus discharge home with family caring for her with home health care I agree with their decision. Thanks for consult I will sign off at this time Review of Systems ROS Limitations: Other (patient somewhat tired please see med psych assessments ) Past Family Social History Coded Allergies: No Known Allergies (Unverified , 11/22/14) Active Scripts Pantoprazole (Pantoprazole) 40 Mg Tab, 40 MG PO Q12HR for GI, #60 TAB Prov:Charlene Mancera DO 03/21/17 Reported Medications Levothyroxine (Levothyroxine) 112 Mcg Tab, 112 MCG PO DAILY for Thyroid, #30 TAB 0 Refills 03/19/17 Diltiazem ER 24 HR (Diltiazem ER 24 HR) 240 Mg Caper, 240 MG PO DAILY, #30 CAP 0 Refills 03/19/17 Hydralazine HCl (Hydralazine HCl) 25 Mg Tablet, 50 MG PO HS for Blood Pressure Management, #60 TAB 0 Refills 03/19/17 Paricalcitol (Zemplar) 1 Mcg Cap, 1 MCG PO DAILY for Secondary hyperparathyroidism, #30 CAP 0 Refills 03/19/17 Febuxostat (Uloric) 80 Mg Tab 03/19/17 Ferrous Sulfate (Ferrous Sulfate) 325 Mg (65 Mg Iron) Tablet, 325 MG PO TIDPC for Nutritional Supplement, #90 TAB 0 Refills 03/19/17 Magnesium Oxide (Magnesium Oxide) 500 Mg Tab, 500 MG PO DAILY, TAB 0 Refills 03/19/17 Acetaminophen (Tylenol) 325 Mg Tab, 650 MG PO Q6H Y for pain, TAB 0 Refills 03/19/17 Discontinued Reported Medications Aspirin DR (Aspirin EC) 325 Mg Tabdr, 325 MG PO DAILY, TAB 0 Refills 03/19/17 Current Medications Medications (Trade) Dose Ordered Sig/Mir Route Start Time Stop Time Status Last Admin (NS Flush) 2 ml UNSCH PRN IV FLUSH 03/19/17 22:00 (NS Flush) 2 ml BID IV FLUSH 03/20/17 09:00 03/28/17 08:27 (Narcan Inj) 0.4 mg UNSCH PRN IV PUSH 03/19/17 22:00 (Cardizem Cd) 240 mg DAILY PO 03/20/17 09:00 03/28/17 08:26 (Ferrous Sulfate) 325 mg TIDPC PO 03/20/17 09:30 03/28/17 14:51 (Synthroid) 112 mcg DAILY@0700 PO 03/20/17 07:00 03/28/17 06:07 (Zemplar) 1 mcg DAILY PO 03/20/17 09:00 03/28/17 08:26 (Mag-Ox) 400 mg DAILY PO 03/20/17 09:00 03/28/17 08:26 (Protonix) 40 mg Q12HR PO 03/21/17 21:00 03/28/17 08:26 (Norvasc) 2.5 mg DAILY PO 03/22/17 09:00 03/27/17 10:30 (Pill Splitter) 1 ea UNSCH PRN OTHER 03/21/17 16:00 (Megace) 40 mg DAILY PO 03/26/17 09:00 03/28/17 08:26 Family Psych History Patient denies Social History Patient has supportive family Patient's Strengths (min. 2) Patient verbal has capacity Physical Exam Please see MedSurg assessments Vital Signs Vital Signs Date Time Temp Pulse Resp B/P (MAP) Pulse Ox O2 Delivery O2 Flow Rate FiO2 03/28/17 11:55 96.2 98 18 120/57 (78) 93 03/28/17 08:34 Room Air 03/27/17 08:00 2.00 I/O 03/28/17 03/28/17 03/29/17 08:00 16:00 00:00 Intake Total 240 ml Balance 240 ml Lab Results Date/Time Source Procedure Growth Status 03/20/17 01:40 Urine Clean Catch Urine Culture - Final Complete Mental Status Examination Appearance: Appropriate (for her situation) Consciousness: Alert (to somewhat drowsy waking up from a nap) Orientation: Person, Place, Date/Time Motor Activity: Other (patient in bed) Speech: Slow Language: Adequate Fund of Knowledge: Adequate Attention and Concentration: Adequate Memory: Unremarkable (fair) Mood: Other (euthymic to somewhat restricted and dysphoric) Affect: Other (decreased range and intensity) Thought Process & Associations: Intact Thought Content: Appropriate Hallucination Type: None Delusion Type: None Suicidal Ideation: No Suicidal Plan: No Suicidal Intention: No Homicidal Ideation: No Homicidal Plan: No Insight: Fair Judgment: Adequate Assessment & Plan Problem List: (1) Mild cognitive disorder ICD Codes: F09 - Unspecified mental disorder due to known physiological condition Assessment & Plan This time as my opinion the patient does have capacity to make decisions concerning her care. This is also discussed with her son Vinay. Okay by psych for patient to be discharged home when medically cleared the family did take care of her and her home also the hiring of 24 7 help me no Rx recommended by me Estimated LOS: days Discharge Planning See above Rajinder Childs MD Mar 28, 2017 16:01
[2017-03-29 03:35] VITALS: PULSE 104
[2017-03-29 04:40] VITALS: BP 138/59; PULSE 95; RESP 18; TEMP 97.5; O2SAT 95
[2017-03-29] MEDS: LEVOTHYROXINE SODIUM 112 MCG TAB PO SCH (04:47)
[2017-03-29 07:40] LABS: ALBUMIN 2.1 GM/DL (3.4-5.0); BICARBONATE 23.2 MEQ/L (21.0-32.0); CALCIUM 8.7 MG/DL (8.5-10.1); CREATININE 4.57 MG/DL (0.50-1.00); PHOSPHORUS 3.2 MG/DL (2.5-4.9)
[2017-03-29 08:00] VITALS: BP 96/60; PULSE 101; RESP 18; TEMP 98; O2SAT 97
--- NOTE | 2017-03-29 08:59 | HHI.NPPN ---
Subjective Complaints: Anorexia Renal Failure: Stage V History of Present Illness Patient is a 86-year-old female with history of CHF, A. fib, and chronic kidney disease presents to the emergency room for evaluation of low hemoglobin. . HGB was found to be 6.8. She follows with the web applications developer, Dr. Choudhary. Per records states her renal function is around 18% at baseline and there were discussions of possibly starting dialysis. . Additional Remarks All the notes were reviewed. Seen by psychiatry. Patient and the family have decided not to proceed with dialysis. Review of Systems General Constitutional: Fatigue Respiratory Respiratory Remarks Denies SOB Cardiovascular Cardiac Remarks Denies CP Gastrointestinal GI Remarks Denies abdominal pain. Genitourinary Remarks No dysuria Objective Data Data Vital Signs Date Time Temp Pulse Resp B/P (MAP) Pulse Ox O2 Delivery O2 Flow Rate FiO2 03/29/17 04:40 97.5 95 18 138/59 (85) 95 03/29/17 03:35 104 03/28/17 23:45 101 03/28/17 23:15 97.4 104 20 128/54 (78) 96 03/28/17 19:50 96.5 94 20 135/75 (95) 97 03/28/17 16:00 96.0 99 17 104/66 (79) 95 03/28/17 11:55 96.2 98 18 120/57 (78) 93 -: 03/27/17 0440 03/29/17 0553 Physical Exam General Appearance: No Acute Distress, Comfortable, Obese Eyes Eye Exam: Pupils Equal Pulmonary Resp Exam: Clear Bilaterally, No Distress Cardiology CV Exam: Normal Sinus Rhythm Gastrointestinal/Abdomen GI Exam: Soft, Non-Tender, Bowel Sounds Present Genitourinary Exam: Flank Non-Tender Integumentary Skin Exam: Clear, Warm Extremeties Extremities Exam: Trace Edema Psychiatric Psych Exam: Appropriate Responses Assessment/Plan Assessment Summary: SERJIO/Acute Renal Failure, CKD Stage V Problem List: (1) CKD (chronic kidney disease) stage 4, GFR 15-29 ml/min ICD Codes: N18.4 - Chronic kidney disease, stage 4 (severe) Status: Chronic Plan: SERJIO on CKD followed by Dr. Choudhary outpatient. GFR is now 9, in need for dialysis very soon, she has refused renal replacement therapy. All the notes were reviewed. (2) Anemia ICD Codes: D64.9 - Anemia, unspecified Status: Acute Plan: HGB 9.9 transfused 2 units of PRBC on admission S/P EGD on 03/20/17---> Large duodenal ulcer, bx pending. CT scan shows diverticulosis Venofer X 1 for iron deficiencey anemia on the Epogen X1 given on the (3) Atrial fibrillation ICD Codes: I48.91 - Unspecified atrial fibrillation Status: Chronic Plan: Rate controlled anticoagulation on hold with recent GI bleed Plan Patient to be discharged to home with palliative care/hospice. Problem Qualifiers (1) Anemia: Qualified Codes: D50.0 - Iron deficiency anemia secondary to blood loss ( chronic) (2) Atrial fibrillation: Qualified Codes: I48.91 - Unspecified atrial fibrillation Pavel Vidal MD Mar 29, 2017 08:59
[2017-03-29] MEDS: amLODIPine BESYLATE 5 MG TAB PO SCH (09:00)
[2017-03-29] MEDS: SODIUM CHLORIDE 0.9% FLUSH 10 ML FLUSH IV FLUSH SCH ×2 (09:00→21:00)
[2017-03-29] MEDS: MEGESTROL ACETATE 40 MG TAB PO SCH (09:25)
[2017-03-29] MEDS: DILTIAZEM-CD 240 MG CAP ER PO SCH (09:25)
[2017-03-29] MEDS: PANTOPRAZOLE SOD 40 MG DELAYED RELEASE TAB PO SCH ×2 (09:25→21:32)
[2017-03-29] MEDS: MAGNESIUM OXIDE 400 MG TAB PO SCH (09:25)
[2017-03-29] MEDS: PARICALCITOL 1 MCG CAP PO SCH (09:25)
[2017-03-29] MEDS: FERROUS SULFATE 325 MG (65 MG ELEMENTAL IRON) TAB PO SCH ×3 (09:25→16:34)
[2017-03-29 12:00] VITALS: BP 112/71; PULSE 78; RESP 17; TEMP 97.3; O2SAT 99
[2017-03-29 16:00] VITALS: BP 122/65; PULSE 76; RESP 18; TEMP 96; O2SAT 98
--- NOTE | 2017-03-29 16:48 | HHI.PR ---
Subjective Remarks Discussed case with RN no major overnight events. Objective Vitals Vital Signs Date Time Temp Pulse Resp B/P (MAP) Pulse Ox O2 Delivery O2 Flow Rate FiO2 03/29/17 12:00 97.3 78 17 112/71 (85) 99 03/29/17 09:16 Nasal Cannula 3.00 03/29/17 08:00 98.0 101 18 96/60 (72) 97 03/29/17 04:40 97.5 95 18 138/59 (85) 95 03/29/17 03:35 104 03/28/17 23:45 101 03/28/17 23:15 97.4 104 20 128/54 (78) 96 03/28/17 19:50 96.5 94 20 135/75 (95) 97 I/O 03/28/17 03/28/17 03/28/17 03/29/17 03/29/17 03/29/17 07:00 15:00 23:00 07:00 15:00 23:00 Intake Total 240 ml 480 ml 240 ml 240 ml 480 ml Balance 240 ml 480 ml 240 ml 240 ml 480 ml Intake Oral 240 ml 480 ml 240 ml 240 ml 480 ml # Voids 1 2 3 2 4 # Bowel Movements 0 1 1 0 1 Result Diagram: 03/27/17 0440 03/29/17 0553 Imaging Last Impressions Renal Ultrasound 03/22/17 0000 Signed Impressions: Service Date/Time: Wednesday, March 22, 2017 18:41 - CONCLUSION: 1. Echogenic kidneys which can be seen with medical renal disease. 2. Bilateral renal cysts. 3. Nonobstructing left renal calculus. Domingo Almaguer MD Abdomen/Pelvis CT 03/19/17 194 Signed Impressions: Service Date/Time: March 20:12 - CONCLUSION: 1. No acute abnormality. 2. Mild stranding of the subcutaneous fat involving the left flank. This could relate to focal edema or cellulitis. No fluid collection. 3. Colonic diverticulosis. 4. Cardiomegaly with tiny bilateral pleural effusions and bibasilar atelectasis. Tae Vyas Jr., MD Objective Remarks GENERAL: Alert, NAD. SKIN: Warm and dry. HEAD: Normocephalic. EYES: No scleral icterus. No injection or drainage. NECK: Supple, trachea midline. No JVD or lymphadenopathy. CARDIOVASCULAR: Regular rate and rhythm without murmurs, gallops, or rubs. RESPIRATORY: Breath sounds equal bilaterally. No accessory muscle use. GASTROINTESTINAL: Abdomen soft, non-tender, nondistended. MUSCULOSKELETAL: No cyanosis, or edema. BACK: Nontender without obvious deformity. No CVA tenderness. Procedures EGD The esophagus this appeared to be unremarkable and within normal limits The stomach this too appeared to be unremarkable and within normal limits The duodenum there was a large duodenal sweep ulcer clean-based but there was one area of suspected visible vessel this was cauterized and no bleeding occurred the edges were slightly raised and edematous those were biopsied the rest of the duodenum was unremarkable Medications and IVs Current Medications Medications (Trade) Dose Ordered Sig/Mir Route Start Time Stop Time Status Last Admin (NS Flush) 2 ml UNSCH PRN IV FLUSH 03/19/17 22:00 (NS Flush) 2 ml BID IV FLUSH 03/20/17 09:00 03/28/17 08:27 (Narcan Inj) 0.4 mg UNSCH PRN IV PUSH 03/19/17 22:00 (Cardizem Cd) 240 mg DAILY PO 03/20/17 09:00 03/29/17 09:25 (Ferrous Sulfate) 325 mg TIDPC PO 03/20/17 09:30 03/29/17 16:34 (Synthroid) 112 mcg DAILY@0700 PO 03/20/17 07:00 03/29/17 04:47 (Zemplar) 1 mcg DAILY PO 03/20/17 09:00 03/29/17 09:25 (Mag-Ox) 400 mg DAILY PO 03/20/17 09:00 03/29/17 09:25 (Protonix) 40 mg Q12HR PO 03/21/17 21:00 03/29/17 21:32 (Norvasc) 2.5 mg DAILY PO 03/22/17 09:00 03/27/17 10:30 (Pill Splitter) 1 ea UNSCH PRN OTHER 03/21/17 16:00 (Megace) 40 mg DAILY PO 03/26/17 09:00 03/29/17 09:25 A/P Problem List: (1) Atrial fibrillation ICD Code: I48.91 - Unspecified atrial fibrillation Status: Chronic (2) Anemia due to blood loss ICD Code: D50.0 - Iron deficiency anemia secondary to blood loss (chronic) Status: Resolved (3) CKD (chronic kidney disease) stage 4, GFR 15-29 ml/min ICD Code: N18.4 - Chronic kidney disease, stage 4 (severe) Status: Chronic (4) Hypothyroidism ICD Code: E03.9 - Hypothyroidism, unspecified Status: Chronic (5) Hypertension ICD Code: I10 - Hypertension Status: Chronic Assessment and Plan Ms. Batres is an 86-year-old female with a history of atrial fibrillation who was admitted to the hospital due to hemoglobin 6.8. She was sent from [facility]. She underwent EGD with cauterization of one blood vessel. Patient is currently doing well. No fever chills or any bleeding. Hemoglobin is holding up. She received 2 units of blood during this admission. - Anemia due to acute GI blood loss - Status post EGD - Continue Protonix 40 mg by mouth twice a day - We'll continue to provide supportive care - H&H stable. - Acute kidney injury - Creatinine 4.29 --> 3.79 --> 4.08 --> 4.13 --> 4.07 - CKD Stage IV - Renal US shows medical renal disease. Nephrology on board. - If no improvement noticed, patient may need to start dialysis. - Discussed with Nephrology. Dr. Yanes has discussed with patient's son will discuss with patient regarding dialysis. - Patient likely will need outpatient dialysis arrangement. Her regular expeller worker is Dr. Brett Choudhary. - As per nephrology documentation - Dr Yanes spoke to the patient's son on the phone yesterday, he will discuss with mother and let nephrology know. - 03/27 Patient is refusing dialysis. Psychiatry consulted. Explained to patient regarding her kidney issue and what the treatment alternatives were. These included treated with dialysis whether hemodialysis or peritoneal, no treatment. Excellent to the patient that electing not to treat currently to . The patient was able to answer my questions and seemed to understand the consequences of her decisions. Power of hand clipper at bedside with the rest of family. Power of hand clipper and patient continued to refuse dialysis. Hospice consulted. Discussed the case with hospice and the patient will be able to go to home when hospital bed and other equipment are set up at home. - Atrial fibrillation - Hypothyroidism - Hypertension - Continue home medications diltiazem 240 mg daily, levothyroxine 112 g by mouth daily. - Will discontinue patient's home medication hydralazine 50 g daily at bedtime. - Currently patient is normotensive or slightly hypotensive. - We'll continue amlodipine 2.5 mg daily with holding parameters. - In light of GI bleeding risk, we will hold off anti-coagulation. - However, [id number] score is at least 4. GI recommended no anti- coagulation for 1-2 weeks. EGD was done on 03/20/2017. - After 2 weeks, she should discuss with her physicians regarding anti- coagulation for Afib stroke risk reduction. - She has CKD stage IV. Apixaban 2.5mg BID would be appropriate for Afib anti -coagulation. DNR. SCDs. We are not using Lovenox/Heparin for DVT prophylaxis due to concern over GI bleed. Discharge Planning Patient will be discharged home on hospice on Thursday after arrangements made. Problem Qualifiers (1) Atrial fibrillation: Qualified Codes: I48.91 - Unspecified atrial fibrillation (2) Hypothyroidism: Qualified Codes: E03.9 - Hypothyroidism, unspecified Wang Mayers MD Mar 29, 2017 16:48
[2017-03-29 20:00] VITALS: BP 114/57; PULSE 88; PULSE 89; RESP 20; TEMP 96.4; O2SAT 96
[2017-03-30] VITALS (7 sets, daily range): BP systolic 109–120; BP diastolic 58–70; PULSE 75–110; RESP 18–21; TEMP 96–97.8; O2SAT 93–98
[2017-03-30] MEDS: LEVOTHYROXINE SODIUM 112 MCG TAB PO SCH (05:09)
[2017-03-30] MEDS: MEGESTROL ACETATE 40 MG TAB PO SCH (08:29)
[2017-03-30] MEDS: PANTOPRAZOLE SOD 40 MG DELAYED RELEASE TAB PO SCH (08:30)
[2017-03-30] MEDS: PARICALCITOL 1 MCG CAP PO SCH (08:30)
[2017-03-30] MEDS: amLODIPine BESYLATE 5 MG TAB PO SCH (08:30)
[2017-03-30] MEDS: MAGNESIUM OXIDE 400 MG TAB PO SCH (08:30)
[2017-03-30] MEDS: DILTIAZEM-CD 240 MG CAP ER PO SCH (08:30)
[2017-03-30] MEDS: FERROUS SULFATE 325 MG (65 MG ELEMENTAL IRON) TAB PO SCH (08:34)
--- NOTE | 2017-03-30 09:05 | HHI.NPPN ---
Subjective Complaints: Anorexia Renal Failure: Stage V History of Present Illness Patient is a 86-year-old female with history of CHF, A. fib, and chronic kidney disease presents to the emergency room for evaluation of low hemoglobin. . HGB was found to be 6.8. She follows with the show host/hostess, Dr. Choudhary. Per records states her renal function is around 18% at baseline and there were discussions of possibly starting dialysis. . Additional Remarks Resting comfortably. Denies any SOB. Minimal lower extremity edema. Patient and the family have decided not to proceed with dialysis. (Yudith Tavarez) Additional Remarks Patient seen in AM,not in distress. (Chaz Yanes MD) Review of Systems General Constitutional: Fatigue (Yudith Tavarez) Respiratory Respiratory Remarks Denies SOB (Yudith Tavarez) Cardiovascular Cardiac Remarks Denies CP (Yudith Tavarez) Gastrointestinal GI Remarks Denies abdominal pain. (Yudith Tavarez) Genitourinary Remarks No dysuria (Yudith Tavarez) Objective Data Data Vital Signs Date Time Temp Pulse Resp B/P (MAP) Pulse Ox O2 Delivery O2 Flow Rate FiO2 03/30/17 04:05 88 03/30/17 04:00 97.0 75 20 113/69 (84) 95 03/30/17 00:05 101 03/30/17 00:00 97.8 99 20 111/69 (83) 98 03/29/17 20:00 96.4 88 20 114/57 (76) 96 03/29/17 20:00 89 03/29/17 16:00 96.0 76 18 122/65 (84) 98 03/29/17 12:00 97.3 78 17 112/71 (85) 99 03/29/17 09:16 Nasal Cannula 3.00 (Yudith Tavarez) -: 03/27/17 0440 03/29/17 0553 Physical Exam General Appearance: No Acute Distress, Comfortable, Obese (Yudith Tavarez) Eyes Eye Exam: Pupils Equal (Yudith Tavarez) Pulmonary Resp Exam: Clear Bilaterally, No Distress (Yudith Tavarez) Cardiology CV Exam: Normal Sinus Rhythm (Yudith Tavarez) Gastrointestinal/Abdomen GI Exam: Soft, Non-Tender, Bowel Sounds Present (Yudith Tavarez) Genitourinary Exam: Flank Non-Tender (Yudith Tavarez) Integumentary Skin Exam: Clear, Warm (Yudith Tavarez) Extremeties Extremities Exam: Trace Edema Extremeties Remarks lower extremity (Yudith Tavarez) Psychiatric Psych Exam: Appropriate Responses (Yudith Tavarez) Assessment/Plan Assessment Summary: SERJIO/Acute Renal Failure, CKD Stage V Problem List: (1) CKD (chronic kidney disease) stage 4, GFR 15-29 ml/min ICD Codes: N18.4 - Chronic kidney disease, stage 4 (severe) Status: Chronic Plan: SERJIO on CKD followed by Dr. Choudhary outpatient. GFR is now 9, in need for dialysis very soon, she has refused renal replacement therapy Plans for discharge home today with hospice (2) Anemia ICD Codes: D64.9 - Anemia, unspecified Status: Acute Plan: transfused 2 units of PRBC on admission S/P EGD on 03/20/17---> Large duodenal ulcer, bx pending. CT scan shows diverticulosis Venofer X 1 for iron deficiencey anemia on the Epogen X1 given on the (3) Atrial fibrillation ICD Codes: I48.91 - Unspecified atrial fibrillation Status: Chronic Plan: Rate controlled anticoagulation on hold with recent GI bleed Plan Patient to be discharged to home with palliative care/hospice. (Yudith Tavarez) Problem List: (1) CKD (chronic kidney disease) stage 4, GFR 15-29 ml/min ICD Codes: N18.4 - Chronic kidney disease, stage 4 (severe) Status: Chronic Plan: SERJIO on CKD followed by Dr. Choudhary outpatient. GFR is now 9, in need for dialysis very soon, she has refused renal replacement therapy Plans for discharge home today with hospice . Patient seen and examined, agree with above. Follow with Dr. Choudhary. (2) Anemia ICD Codes: D64.9 - Anemia, unspecified Status: Acute Plan: transfused 2 units of PRBC on admission S/P EGD on 03/20/17---> Large duodenal ulcer, bx pending. CT scan shows diverticulosis Venofer X 1 for iron deficiencey anemia on the Epogen X1 given on the (3) Atrial fibrillation ICD Codes: I48.91 - Unspecified atrial fibrillation Status: Chronic Plan: Rate controlled anticoagulation on hold with recent GI bleed (Chaz Yanes MD) Problem Qualifiers (1) Anemia: Qualified Codes: D50.0 - Iron deficiency anemia secondary to blood loss ( chronic) (2) Atrial fibrillation: Qualified Codes: I48.91 - Unspecified atrial fibrillation Yudith Tavarez Mar 30, 2017 09:05 Chaz Yanes MD Mar 30, 2017 16:07
== END 2017-03-30 12:21 | disposition hospice, home (50) | DRG 377 ==
LOC: NEPE 18:04 → EDBD 18:04 → NEDA 22:03 → NEDH 03-20 02:03 → N06A 03-20 13:35
PROVIDERS: ADMIT Hospitalist; ATTEND Hospitalist
PROC: 30233N1 Transfusion of Nonautologous Red Blood Cells into Peripheral Vein, Percutaneous Approach (ICD-10-PCS; 2017-03-19)
PROC: 0D598ZZ Destruction of Duodenum, Via Natural or Artificial Opening Endoscopic (ICD-10-PCS; 2017-03-20)
PROC: 0DB98ZX Excision of Duodenum, Via Natural or Artificial Opening Endoscopic, Diagnostic (ICD-10-PCS; principal; 2017-03-20 11:57)
DX: K26.4 Chronic or unspecified duodenal ulcer with hemorrhage (principal); N18.6 End stage renal disease; I13.2 Hypertensive heart and chronic kidney disease with heart failure and with stage 5 chronic kidney disease, or end stage renal disease; N17.9 Acute kidney failure, unspecified; E87.0 Hyperosmolality and hypernatremia; I48.91 Unspecified atrial fibrillation; I95.9 Hypotension, unspecified; K57.31 Diverticulosis of large intestine without perforation or abscess with bleeding; I50.9 Heart failure, unspecified; J44.9 Chronic obstructive pulmonary disease, unspecified; Z68.44 Body mass index [BMI] 60.0-69.9, adult; D62 Acute posthemorrhagic anemia; N25.81 Secondary hyperparathyroidism of renal origin; E86.0 Dehydration; E66.01 Morbid (severe) obesity due to excess calories; E89.0 Postprocedural hypothyroidism; R63.0 Anorexia; M19.90 Unspecified osteoarthritis, unspecified site; F09 Unspecified mental disorder due to known physiological condition; Z51.5 Encounter for palliative care; Z53.29 Procedure and treatment not carried out because of patient's decision for other reasons; Z66 Do not resuscitate; Z79.82 Long term (current) use of aspirin; Z96.651 Presence of right artificial knee joint
CPT/HCPCS: 36430; 74176; 76775; 80048; 80053; 80069; 81001; 82728; 83540; 83550; 83605; 83690; 83735; 85007; 85014; 85018; 85025; 85027; 85610; 85730; 86850; 86900; 86901; 86920; 87077; 87086; 87186; 88305; 99285; C9113; J0696; J1756; J1940; J7050; P9016; Q4081